=== PATIENT | female | born 1975 | race African-American/Black ===

== ENCOUNTER 2016-11-24 14:42 | Emergency (ER) | payer SELFPAY ==
--- NOTE | 2016-11-24 15:00 | ER Document Report ---
ED Medical Screen (RME) - General Stated Complaint: PSYCH EVAL Time seen by provider: 14:58 Mode of Arrival: Ambulatory Information source: Patient Notes: 41-year-old female presents to ED for feeling depressed for a while now. She denies any thoughts of harming herself or anyone else at this time. States she does not have a mental health worker to help her at this time. She states she has some traumatic events in her life at this time. she is very tearful in the RME. She denies smoking drinking or any drugs. I have greeted and performed a rapid initial assessment of this patient. A comprehensive ED assessment and evaluation of the patient, analysis of test results and completion of medical decision making process will be conducted by an additional ED providers. TRAVEL OUTSIDE OF THE [place] IN LAST 30 DAYS: No - Related Data Allergies/Adverse Reactions: oxycodone HCl [From Percocet] Allergy (Verified 05/04/14 09:52) Past Medical History - Past Medical History Cardiac Medical History: Reports: Hx Hypercholesterolemia, Hx Hypertension Neurological Medical History: Denies: Hx Seizures Musculoskeltal Medical History: Reports Hx Arthritis, Reports Hx Musculoskeletal Trauma Psychiatric Medical History: Reports: Hx Depression Past Surgical History: Reports: Hx Section - x 2 - Immunizations Immunizations up to date: Yes Hx Diphtheria, Pertussis, Tetanus Vaccination: Yes Physical Exam - Vital signs Vitals: Temp Pulse Resp BP Pulse Ox 98.3 F 85 16 161/98 H 97 11/24/16 14:54 11/24/16 14:54 11/24/16 14:54 11/24/16 14:54 11/24/16 14:54 Course - Vital Signs Vital signs: Temp Pulse Resp BP Pulse Ox 98.3 F 85 16 161/98 H 97 11/24/16 14:54 11/24/16 14:54 11/24/16 14:54 11/24/16 14:54 11/24/16 14:54
[2016-11-24 15:42] LABS: ABSOLUTE EOSINOPHILS # (AUTO) 0.1 10^3/uL (0.0-0.6); ABSOLUTE LYMPHOCYTES (AUTO) 3.8 10^3/uL (0.5-4.7); ABSOLUTE MONOCYTES (AUTO) 0.8 10^3/uL (0.1-1.4); ABSOLUTE NEUT (AUTO) 2.7 10^3/uL (1.7-8.2); BASOPHILS % (AUTO) 0.7 % (0-2); EOSINOPHILS % (AUTO) 1.7 % (0-6); HEMATOCRIT 37.9 % (36.0-47.0); HEMOGLOBIN 12.5 g/dL (12.0-15.5); HGB HCT DIFFERENCE -0.4; LYMPHOCYTES % (AUTO) 50.8 % (13-45); MEAN CORPUSCULAR HEMOGLOBIN 27.8 pg (27.0-33.4); MEAN CORPUSCULAR VOLUME 84 fl (80-97); MONOCYTES % (AUTO) 10.4 % (3-13); RED CELL DISTRIBUTION WIDTH 13.8 % (11.5-14.0); SEGMENTED NEUTROPHILS % (AUTO) 36.4 % (42-78); WHITE BLOOD COUNT 7.5 10^3/uL (4.0-10.5)
[2016-11-24 15:48] LABS: APPEARANCE,URINE SLIGHTLY-CLOUDY; BILIRUBIN,URINE NEGATIVE (NEGATIVE); GLUCOSE, URINE NEGATIVE (NEGATIVE); KETONES,URINE NEGATIVE (NEGATIVE); LEUKOCYTE ESTERASE,URINE NEGATIVE (NEGATIVE); NITRITE,URINE NEGATIVE (NEGATIVE); PROTEIN,URINE NEGATIVE (NEGATIVE); URINE SPECIFIC GRAVITY 1.029
[2016-11-24 15:55] LABS: ALANINE AMINOTRANSFERASE 18 U/L (9-52); ALBUMIN 4.2 g/dL (3.5-5.0); ALKALINE PHOSPHATASE 136 U/L (38-126); ANION GAP 12 (5-19); ASPARTATE AMINO TRANSFERASE 16 U/L (14-36); BILIRUBIN,TOTAL 0.6 mg/dL (0.2-1.3); BLOOD UREA NITROGEN 9 mg/dL (7-20); CALCIUM 9.5 mg/dL (8.4-10.2); CARBON DIOXIDE 30 mmol/L (22-30); CHLORIDE 100 mmol/L (98-107); CREATININE RESULT 0.57 mg/dL (0.52-1.25); GLUCOSE 90 mg/dL (75-110); POTASSIUM 3.4 mmol/L (3.6-5.0)
[2016-11-24 15:56] LABS: ALCOHOL < 10 mg/dL (NONE DETECTED)
[2016-11-24 16:03] LABS: URINE BARBITURATES SCREEN NEGATIVE; URINE METHADONE SCREEN NEGATIVE; URINE OPIATES LOW NEGATIVE; URINE PHENCYCLIDINE SCREEN NEGATIVE
--- NOTE | 2016-11-24 16:21 | ER Document Report ---
ED General - General Chief Complaint: Psych Problem Stated Complaint: PSYCH EVAL Time seen by provider: 16:19 Mode of Arrival: Ambulatory Information source: Patient Notes: 41-year-old female with one-week history of feeling very "depressed". She reports she is tearful and very sad she denies any suicidal or homicidal ideation and denies any audio or visual hallucinations. She says she feels loneliness if she has no and talk to. Been followed by [facility] for high blood pressure, cholesterol. She says she has not felt depressed like this before. Physical Exam: General: Alert, appears well. Tearful HEENT: Normocephalic. Atraumatic. PERRLA. Extraocular movements intact. Oropharynx clear. Neck: Supple. Non-tender. Respiratory: No respiratory distress. Clear and equal breath sounds bilaterally. Cardiovascular: Regular rate and rhythm. Abdominal: Normal Inspection. Soft, non-tender. No distension. Normal Bowel Sounds. Back: Non-tender. No deformity or step off. Extremities: Moves all four extremities. Upper extremities: Normal inspection. Non-tender. Normal color. Normal ROM. Normal temperature. Lower extremities: Normal inspection. Non-tender. No edema. Normal color. Normal ROM. Normal temperature. Neurological: Speech clear mentation normal moves all extremities well. No audiovisual hallucinations Psychological: Crying and tearful during exam. Skin: Warm. Dry. Normal color.m TRAVEL OUTSIDE OF THE [place] IN LAST 30 DAYS: No - Related Data Allergies/Adverse Reactions: oxycodone HCl [From Percocet] Allergy (Verified 11/24/16 15:00) Past Medical History - General Information source: Patient - Social History Smoking Status: Never Smoker Chew tobacco use (# tins/day): No Frequency of alcohol use: None Drug Abuse: None Family History: Arthritis, CAD, CVA, DM, Hyperlipidemia, Hypertension Patient has suicidal ideation: No Patient has homicidal ideation: No - Past Medical History Cardiac Medical History: Reports: Hx Hypercholesterolemia, Hx Hypertension Neurological Medical History: Denies: Hx Seizures Renal/ Medical History: Denies: Hx Peritoneal Dialysis Musculoskeltal Medical History: Reports Hx Arthritis, Reports Hx Musculoskeletal Trauma Psychiatric Medical History: Reports: Hx Depression Past Surgical History: Reports: Hx Section - x 2 - Immunizations Immunizations up to date: Yes Hx Diphtheria, Pertussis, Tetanus Vaccination: Yes Review of Systems - Review of Systems Constitutional: denies: Chills, Fever EENT: denies: Ear pain, Throat pain Cardiovascular: denies: Chest pain, Syncope Respiratory: denies: Cough, Short of breath Gastrointestinal: denies: Abdominal pain, Nausea, Vomiting Genitourinary: denies: Burning Female Genitourinary: No symptoms reported Musculoskeletal: denies: Back pain Skin: denies: Rash Hematologic/Lymphatic: denies: Swollen glands Neurological/Psychological: denies: Weakness, Numbness Physical Exam - Vital signs Vitals: Temp Pulse Resp BP Pulse Ox 98.3 F 85 16 161/98 H 97 11/24/16 14:54 11/24/16 14:54 11/24/16 14:54 11/24/16 14:54 11/24/16 14:54 Course - Re-evaluation Re-evalutation: 11/24/16 16:53 Patient is medically clear. Patient has been seen by mental health provider. They assessed her and I concur that the patient is not a threat to self or others and is safe for discharge with outpatient follow-up. She is instructed to follow-up at [facility] [place] tomorrow. - Vital Signs Vital signs: Temp Pulse Resp BP Pulse Ox 98.3 F 85 16 161/98 H 97 11/24/16 14:54 11/24/16 14:54 11/24/16 14:54 11/24/16 14:54 11/24/16 14:54 - Laboratory Result Diagrams: 11/24/16 15:17 11/24/16 15:17 Laboratory results interpreted by me: 11/24/16 11/24/16 11/24/16 15:17 15:17 15:37 Seg Neutrophils % 36.4 L Lymphocytes % 50.8 H Potassium 3.4 L Alkaline Phosphatase 136 H Urine Urobilinogen 2.0 H Urine Ascorbic Acid 40 H Salicylates < 1.0 L Acetaminophen < 10 L - EKG Interpretation by Me Additional EKG results interpreted by me: 11/24/16 16:52 EKG reviewed by myself shows sinus rhythm at 75 no acute changes Discharge - Discharge Clinical Impression: Anxiety Depression Qualifiers: Depression Type: unspecified Qualified Code(s): F32.9 - Major depressive disorder, single episode, unspecified Condition: Stable Disposition: HOME, SELF-CARE Additional Instructions: Depression Your evaluation reveals that you have mental depression. While symptoms may be vague, they often include disturbance of sleep, fatigue, loss of appetite , and general loss of interest in life. While depression may be a side effect of drugs, or a reaction to a major change in your life, many cases have no known cause. If depression is acute, and related to a major loss in your life, you can expect it to clear completely with time. If you have been depressed a long time , are prone to repeated bouts of depression or low mood, or have been thinking of suicide, get help. Depression can be treated with anti-depressant medication and counselling. Long-term depression will often take a few weeks to clear, even with appropriate medication. Follow-up care is important. Contact your physician, the hospital emergency center, crisis line, or your counsellor if you are losing control or having self-destructive thoughts. Anxiety The physician feels that some of your health problems are being caused by anxiety. Anxiety affects your health in many ways. Anxiety alone can cause palpitations, sweats, chest pains, abdominal pains, shortness of breath, and headaches. It contributes to ulcer disease, high blood pressure, irritable bowel syndrome, and has been shown to cause flare-ups of many other diseases. Anxiety is not a simple disorder to treat. If the anxiety is due to recent life stresses, you may simply need time to "work through" the changes. If the anxiety is due to an underlying unhappiness with yourself or due to psychiatric disturbance, professional help will be needed. Your physician can refer you for further help if needed. Anti-anxiety medication is occasionally given if the stress is acute or if you are having trouble sleeping. Chronic or frequent use of these medications is not a good idea because the body becomes reliant on it, preventing you from dealing with life's normal stresses. Referrals: [facility] [place] [Provider Group] - Follow up tomorrow
--- NOTE | 2016-11-24 17:37 | PSYCHOLOGICAL NOTE ---
Psych Note - Psych Note Psych Note: Patient is a 41 year old female who presents via her family member seeking assistance for symptoms related to increase depression and feeling empty. Patient states she thinks she may have been depressed for man years, specifically preceeding her mother's 6 years ago. She states she holds on to grudges and just always feels angry. Patient states this past week her symptoms have increased to to include poor sleep, frequent crying spells, and just generally not wanting to engage with others. Patient states she has never been to see a counselor in the past, but was once prescribed Prozac by her PCM. Patient states she did not find it effective, and when her Medicaid switched to family planning, it did not cover that prescription. Patient identifies her current stressors as her daughter recently moving out, and both her daughter and her "talking to me any jon[address] way." Patient states she feels her is verbally abusive, but does deny physical aggression. She denied resources for [facility] at this time. Patient denies suicidal ideations, intent, plan, or means. Patient denies wanting to harm anyone else. Patient is A&O. Mood is sad and anxious with occasionally tearful affect. Patient denies SI/HI; intent, plan, or means. Patient denies A/V H; delusions not noted. Thought processes were oriented and goal oriented. Conversational speech was WNL for rate, tone, and prosody. Intellectual abilities were estimated within average range. Attention and focus were fair. Insight, judgment , and impulse control were poor. Unspecified Depressive Disorder Patient's presenting symptoms are similar to that of a depressive disorder and cause clinically significant distress in all domains of her life At this time, and in this setting there is not enough information to make a more specific diagnosis. Patient is psychiatrically cleared for discharge. Patient is recommended to follow up with [facility] as a walk in new patient tomorrow morning and is agreeable to do so. Patient denies SI/HI, and has adequate supports with her sister-in- law who accompanied her here today and has agreed to check in with her frequently. Patient states she came to the ER for help, and identifies the type of help she would like as medication for her nerves. Patient does endorse depressive symptoms, which at this time are recommended to be addressed via outpatient treatment. Patient was provided resources to do so. I consulted with Dr. Urbano in regards to the care and management of this patient. ED MD is in agreement with disposition and recommendations.
[2016-11-24 17:39] VITALS: BP 133/80
--- NOTE | 2016-11-24 21:46 | EKG REPORT ---
SEVERITY:- NORMAL ECG - SINUS RHYTHM : Confirmed by: Vincent Murillo 24-Nov-2016 21:46:07
== END 2016-11-24 17:26 | disposition home or self-care (01) ==
LOC: ER 14:42
DX: F41.9 Anxiety disorder, unspecified (principal); F32.9 Major depressive disorder, single episode, unspecified; E78.00 Pure hypercholesterolemia, unspecified; I10 Essential (primary) hypertension; Z88.6 Allergy status to analgesic agent
CPT/HCPCS: 36415; 80053; 80307; 81001; 84703; 85025; 93005; 93010; 99285

== ENCOUNTER 2017-03-20 14:25 | Emergency (ER) | payer SELFPAY ==
--- NOTE | 2017-03-20 14:49 | ER Document Report ---
ED Medical Screen (RME) - General Chief Complaint: Abdominal Pain Stated Complaint: ABDOMINAL/LEFT LEG AND BACK PAIN Time Seen by Provider: 03/20/17 14:42 Notes: The patient is a 41-year-old female, past medical history hypertension, presents with 2 days of left lower quadrant abdominal pain and back pain, which is causing her bilateral leg pain. She is also having vaginal discharge when she urinates that is thin and yellow on the toilet paper. PE: LLQ tenderness. Normal bowel sounds. No acute distress. I have greeted and performed a rapid initial assessment of this patient. A comprehensive ED assessment and evaluation of the patient, analysis of test results and completion of the medical decision making process will be conducted by additional ED providers. TRAVEL OUTSIDE OF THE [place] IN LAST 30 DAYS: No - Related Data Allergies/Adverse Reactions: oxycodone HCl [From Percocet] Allergy (Verified 03/20/17 14:29) Past Medical History - Social History Chew tobacco use (# tins/day): No Frequency of alcohol use: None Drug Abuse: None - Past Medical History Cardiac Medical History: Reports: Hx Hypercholesterolemia, Hx Hypertension Neurological Medical History: Denies: Hx Seizures Renal/ Medical History: Denies: Hx Peritoneal Dialysis Musculoskeltal Medical History: Reports Hx Arthritis, Reports Hx Musculoskeletal Trauma Psychiatric Medical History: Reports: Hx Depression Past Surgical History: Reports: Hx Section - x 2 - Immunizations Immunizations up to date: Yes Hx Diphtheria, Pertussis, Tetanus Vaccination: Yes Physical Exam - Vital signs Vitals: Temp Pulse Resp BP Pulse Ox 99.0 F 95 20 149/90 H 97 03/20/17 14:03/20/17 14:03/20/17 14:29 03/20/17 14:29 03/20/17 14:29 Course - Vital Signs Vital signs: Temp Pulse Resp BP Pulse Ox 99.0 F 95 20 149/90 H 97 03/20/17 14:29 03/20/17 14:29 03/20/17 14:29 03/20/17 14:29 03/20/17 14:29
[2017-03-20 15:33] LABS: ABSOLUTE BASOPHILS # (AUTO) 0.1 10^3/uL (0.0-0.2); ABSOLUTE EOSINOPHILS # (AUTO) 0.1 10^3/uL (0.0-0.6); ABSOLUTE LYMPHOCYTES (AUTO) 3.3 10^3/uL (0.5-4.7); ABSOLUTE MONOCYTES (AUTO) 1.2 10^3/uL (0.1-1.4); ABSOLUTE NEUT (AUTO) 6.6 10^3/uL (1.7-8.2); BASOPHILS % (AUTO) 0.9 % (0-2); EOSINOPHILS % (AUTO) 0.9 % (0-6); HEMATOCRIT 37.4 % (36.0-47.0); HEMOGLOBIN 12.1 g/dL (12.0-15.5); HGB HCT DIFFERENCE -1.1; LYMPHOCYTES % (AUTO) 29.1 % (13-45); MEAN CORPUSCULAR HEMOGLOBIN 27.6 pg (27.0-33.4); MEAN CORPUSCULAR HGB CONC 32.4 g/dL (32.0-36.0); MEAN CORPUSCULAR VOLUME 85 fl (80-97); MONOCYTES % (AUTO) 10.3 % (3-13); RED BLOOD COUNT 4.39 10^6/uL (3.72-5.28); SEGMENTED NEUTROPHILS % (AUTO) 58.8 % (42-78); WHITE BLOOD COUNT 11.2 10^3/uL (4.0-10.5)
[2017-03-20 15:44] LABS: ALANINE AMINOTRANSFERASE 15 U/L (9-52); ALBUMIN 4.1 g/dL (3.5-5.0); ALKALINE PHOSPHATASE 135 U/L (38-126); ANION GAP 12 (5-19); ASPARTATE AMINO TRANSFERASE 15 U/L (14-36); BILIRUBIN,DIRECT 0.3 mg/dL (0.0-0.4); BILIRUBIN,TOTAL 0.6 mg/dL (0.2-1.3); BLOOD UREA NITROGEN 8 mg/dL (7-20); CALCIUM 9.3 mg/dL (8.4-10.2); CARBON DIOXIDE 31 mmol/L (22-30); CHLORIDE 102 mmol/L (98-107); CREATININE RESULT 0.68 mg/dL (0.52-1.25); GLUCOSE 98 mg/dL (75-110); LIPASE 74.1 U/L (23-300); POTASSIUM 3.7 mmol/L (3.6-5.0); SODIUM 144.9 mmol/L (137-145); TOTAL PROTEIN 8.5 g/dL (6.3-8.2)
[2017-03-20 15:52] LABS: APPEARANCE,URINE CLEAR; BILIRUBIN,URINE NEGATIVE (NEGATIVE); GLUCOSE, URINE NEGATIVE (NEGATIVE); KETONES,URINE NEGATIVE (NEGATIVE); LEUKOCYTE ESTERASE,URINE MODERATE (NEGATIVE); NITRITE,URINE NEGATIVE (NEGATIVE); PROTEIN,URINE NEGATIVE (NEGATIVE); URINE SPECIFIC GRAVITY 1.008; UROBILINOGEN,URINE NEGATIVE mg/dL (<2.0)
--- NOTE | 2017-03-20 15:52 | ER Document Report ---
ED GI/ - General Chief Complaint: Abdominal Pain Stated Complaint: ABDOMINAL/LEFT LEG AND BACK PAIN Time Seen by Provider: 03/20/17 14:42 Notes: Patient is here because she has been experiencing pain in the left lower quadrant for 2 days, began Tuesday morning after she had awakened and was up. She says the pain also goes around into the left back/flank region. She has noticed some tingling when she is urinating and that her urine has a more yellow color and an odor to it. Has not had any vomiting or diarrhea. Has not had any fever. LMP March 03. Has had a tubal ligation. Prior . Only medical condition is hypertension. TRAVEL OUTSIDE OF THE [place] IN LAST 30 DAYS: No - Related Data Allergies/Adverse Reactions: oxycodone HCl [From Percocet] Allergy (Verified 03/20/17 14:29) Past Medical History - Social History Smoking Status: Never Smoker Chew tobacco use (# tins/day): No Frequency of alcohol use: None Drug Abuse: None Family History: Arthritis, CAD, CVA, DM, Hyperlipidemia, Hypertension Patient has suicidal ideation: No Patient has homicidal ideation: No - Past Medical History Cardiac Medical History: Reports: Hx Hypercholesterolemia, Hx Hypertension Musculoskeltal Medical History: Reports Hx Arthritis, Reports Hx Musculoskeletal Trauma Psychiatric Medical History: Reports: Hx Depression Past Surgical History: Reports: Hx Section - x 2, Hx Tubal Ligation - Immunizations Immunizations up to date: Yes Hx Diphtheria, Pertussis, Tetanus Vaccination: Yes Review of Systems - Review of Systems Notes: REVIEW OF SYSTEMS: CONSTITUTIONAL : Denies fever. EENT: Denies eye, ear, nose or mouth or throat pain or other symptoms. CARDIOVASCULAR: Denies chest pain. RESPIRATORY: Denies cough, chest congestion, or shortness of breath. GASTROINTESTINAL: See HPI. GENITOURINARY: See HPI. MUSCULOSKELETAL: Denies neck pain. Denies joint pain or swelling. Has chronic back pain secondary to arthritis. SKIN: Denies rash or skin lesions. NEUROLOGICAL: Denies LOC or altered mental status. Denies headache. Denies sensory loss or motor deficits. ALL OTHER SYSTEMS REVIEWED AND NEGATIVE. Physical Exam - Vital signs Vitals: Temp Pulse Resp BP Pulse Ox 99.0 F 95 20 149/90 H 97 03/20/17 14:29 03/20/17 14:29 03/20/17 14:29 03/20/17 14:29 03/20/17 14:29 Interpretation: Normal - Notes Notes: PHYSICAL EXAMINATION: GENERAL: Well-appearing, in no acute distress. Vital signs are all normal. Ambulatory without difficulty. HEAD: Atraumatic, normocephalic. NECK: Normal range of motion, supple. LUNGS: Breath sounds clear and equal bilaterally. HEART: Regular rate and rhythm without murmurs. ABDOMEN: Patient has tenderness in the left lower quadrant plus or minus slight guarding. No mass felt. No bruit heard. Some percussion tenderness in the left flank region. BACK: No tenderness throughout entire back. EXTREMITIES: Normal range of motion without pain. NEUROLOGICAL: Normal speech, normal gait. Normal sensory, motor, and reflex exams. Awake, alert, and oriented x3. SKIN: Warm, dry, no rashes. Course - Vital Signs Vital signs: Temp Pulse Resp BP Pulse Ox 98.1 F 81 16 132/73 H 98 03/20/17 18:38 03/20/17 18:38 03/20/17 18:38 03/20/17 18:38 03/20/17 18:38 - Laboratory Result Diagrams: 03/20/17 15:15 03/20/17 15:15 Laboratory results interpreted by me: 03/20/17 03/20/17 03/20/17 15:05 15:15 15:15 WBC 11.2 H Carbon Dioxide 31 H Alkaline Phosphatase 135 H Total Protein 8.5 H Urine Blood SMALL H Ur Leukocyte Esterase MODERATE H Discharge - Discharge Clinical Impression: Left sided abdominal pain Urinary tract infection Qualifiers: Urinary tract infection type: site unspecified Hematuria presence: without hematuria Qualified Code(s): N39.0 - Urinary tract infection, site not specified Condition: Stable Disposition: HOME, SELF-CARE Additional Instructions: URINARY TRACT INFECTION: Your evaluation indicates that you have a urinary tract infection. This is due to germs growing in the bladder. This is a common problem. This infection usually responds quickly to antibiotics. Your antibiotic should be taken exactly as prescribed. Drink plenty of fluids -- three to four quarts a day. Occasionally, a bladder anesthetic will be prescribed to help stop the feeling of urgency until the antibiotic has a chance to clear the infection. This may cause your urine to be dark orange. Certain urine infections require a culture. If the doctor obtained a culture, the results will be back in two days. You should call to see if a change in treatment is needed. A repeat urinalysis after you finish treatment is often recommended. The physician will let you know if further testing is required. Call the doctor if you develop fever, chills, flank pain, inability to urinate, or blood in the urine. ANTIBIOTIC THERAPY: You have been given an antibiotic prescription. It's important that you take all the medication, unless instructed otherwise by your physician. Failure to complete the entire course can result in relapse of your condition. Common side effects of antibiotics include nausea, intestinal cramping, or diarrhea. Women may develop vaginal yeast infections, and babies can get yeast (thrush) in the mouth following the use of antibiotics. Contact your physician if you develop significant side effects from this medication. Allergy to this antibiotic can result in hives, wheezing, faintness, or itching. If symptoms of allergy occur, stop the medication and call the doctor. Rocephin You have been given an injection of an antibiotic called Rocephin ( ceftriaxone). Sometimes the injection must be combined with antibiotic pills. For some infections, such as an uncomplicated ear infection, Rocephin provides all the antibiotic that's needed. The antibiotic will be in your body for about two days. For serious infections, we usually repeat doses of Rocephin daily. Side effects are very unusual following a shot. Women may develop vaginal yeast infections, and babies can get yeast (thrush) in the mouth following the use of antibiotics. Contact your physician if you have symptoms with this medication. Allergy to this antibiotic can result in hives, wheezing, faintness, or itching. If symptoms of allergy occur, call the doctor at once. NITROFURANTOIN (MACRODANTIN, MACROBID): You have received a prescription for nitrofurantoin (Macrodantin). This antibiotic is used for urinary tract infections. Women who are or nursing should notify the physician before taking this medicine. If you have ever had a problem caused by this medication in the past, be sure the physician is aware of it. Common side effects of this medicine include nausea, vomiting, or decreased appetite. Notify your physician if these side effects become severe. Immediately stop this medicine and call the physician if you develop cough , shortness of breath, chest pain, weakness, jaundice (yellow color of the skin and whites of the eyes), or a skin rash. Oral Narcotic Medication You have been given a prescription for pain control. This medication is a narcotic. It's best taken with food, as nausea can result if taken on an empty stomach. Don't operate machinery or drive within six hours of taking this medication. Do not combine this medicine with alcohol, or with any medication which can cause sedation (such as cold tablets or sleeping pills) unless you get permission from the physician. Narcotics tend to cause constipation. If possible, drink plenty of fluids and eat a diet high in fiber and fruits. FOLLOW-UP CARE: If you have been referred to a physician for follow-up care, call the physician s office for an appointment as you were instructed or within the next two days. If you experience worsening or a significant change in your symptoms, notify the physician immediately or return to the Emergency Department at any time for re-evaluation. Prescriptions: Hydrocodone/Acetaminophen [Ada 5-325 mg Tablet] 1 tab PO Q4HP PRN #10 tablet PRN Reason: Nitrofurantoin/Nitrofuran Mac [Macrobid 100 mg Capsule] 1 tab PO BID #14 capsule
[2017-03-20] MEDS ORDERED: ACETAMINOPHEN 325 MG TABLET PO ONE (15:53)
[2017-03-20] MEDS ORDERED: PROMETHAZINE HCL 25 MG TABLET PO ONE (15:54)
[2017-03-20] MEDS ORDERED: CEFTRIAXONE INJ 1000 MG VIAL IM ONE (17:26)
[2017-03-20] MEDS ORDERED: LIDOCAINE 1% INJ-PF (10 MG/ML) 30 ML SDV INJ ONE (17:26)
[2017-03-20 17:57] LABS: CHLAM PCR NOT DETECTED (NOT DETECT)
--- NOTE | 2017-03-20 18:26 | RADIOLOGY REPORT (SQ) ---
EXAM DESCRIPTION: CT ABD/PELVIS NO ORAL OR IV COMPLETED DATE/TIME: 03/20/2017 6:05 pm REASON FOR STUDY: Left lower quadrant pain COMPARISON: None. TECHNIQUE: CT scan of the abdomen and pelvis performed without intravenous or oral contrast. Images reviewed with lung, soft tissue, and bone windows. Reconstructed coronal and sagittal MPR images revi ewed. All images stored on PACS. All CT scanners at this facility use dose modulation, iterative reconstruction, and/or weight based d osing when appropriate to reduce radiation dose to as low as reasonably achievable (ALARA). [facility]: Dose Right [facility]: CareDose [facility]: Dose Right [facility]: Teradose 4D [facility]: Smart HammerKit RADIATION DOSE: Up-to-date CT equipment and radiation dose reduction techniques were employed. CTDIv ol: 21.0 mGy. DLP: 1116 mGy-cm.mGy. LIMITATIONS: None. FINDINGS: LOWER CHEST: No significant findings. No nodules or infiltrates. NON-CONTRASTED LIVER, SPLEEN, ADRENALS: Evaluation limited by lack of IV contrast. No identified sign ificant masses. PANCREAS: No masses. No peripancreatic inflammatory changes. GALLBLADDER: No identified stones by CT criteria. No inflammatory changes to suggest cholecystitis. RIGHT KIDNEY AND URETER: No solid masses. No significant calcification. No hydronephrosis or hydroure ter. LEFT KIDNEY AND URETER: No solid masses. No significant calcification. No hydronephrosis or hydrouret er. AORTA AND RETROPERITONEUM: No aneurysm. No retroperitoneal masses or adenopathy. BOWEL AND PERITONEAL CAVITY: No obvious masses or inflammatory changes. No free fluid. APPENDIX: Normal. PELVIS, BLADDER, AND ABDOMINAL WALL:No abnormal masses. No free fluid. Bladder normal. BONES: No significant findings. OTHER: No other significant finding. IMPRESSION: NO SIGNIFICANT OR ACUTE PROCESS IN THE ABDOMEN OR PELVIS. TECHNICAL DOCUMENTATION: JOB ID: [id number] Quality ID # [id number]: Final reports with documentation of one or more dose reduction techniques (e.g., Au tomated exposure control, adjustment of the mA and/or kV according to patient size, use of iterative reconstruction technique) 2010 [employer]- All Rights Reserved
[2017-03-20 18:40] VITALS: BP 132/73
== END 2017-03-20 19:15 | disposition home or self-care (01) ==
LOC: ER 14:25
DX: N39.0 Urinary tract infection, site not specified (principal); R10.32 Left lower quadrant pain; I10 Essential (primary) hypertension; Z98.51 Tubal ligation status; Z88.5 Allergy status to narcotic agent
CPT/HCPCS: 99284; 96372; 36415; 87086; 83690; 85025; 81025; 87088; 80053; 81001; 87186; 87491; 87591; 74176; J3490; J0696

== ENCOUNTER → 2017-06-27 | Outpatient (CLI) | payer OTHER ==
[2017-06-27 11:56] LABS: ALANINE AMINOTRANSFERASE 22 U/L (9-52); ALBUMIN 4.4 g/dL (3.5-5.0); ALKALINE PHOSPHATASE 172 U/L (38-126); ANION GAP 14 (5-19); ASPARTATE AMINO TRANSFERASE 20 U/L (14-36); BILIRUBIN,DIRECT 0.4 mg/dL (0.0-0.4); BILIRUBIN,TOTAL 0.7 mg/dL (0.2-1.3); BLOOD UREA NITROGEN 10 mg/dL (7-20); CALCIUM 9.9 mg/dL (8.4-10.2); CARBON DIOXIDE 28 mmol/L (22-30); CHLORIDE 103 mmol/L (98-107); CREATININE RESULT 0.63 mg/dL (0.52-1.25); Direct HDL 53 mg/dL (>40); GLUCOSE 91 mg/dL (75-110); POTASSIUM 3.8 mmol/L (3.6-5.0); SODIUM 144.8 mmol/L (137-145); TOTAL PROTEIN 8.6 g/dL (6.3-8.2); TRIGLYCERIDES 72 mg/dL (<150)
[2017-06-27 12:06] LABS: DIRECT LDL 149 mg/dL (<100)
== END ==
LOC: CCC 09:59
DX: I10 Essential (primary) hypertension (principal)
CPT/HCPCS: 36415; 80053; 80061; 83036

== ENCOUNTER → 2017-06-29 | Outpatient (CLI) | payer OTHER ==
--- NOTE | 2017-06-29 13:03 | WOMENS IMAGING REPORT ---
EXAM DESCRIPTION: BILAT SCREENING MAMMO W/CAD COMPLETED DATE/TIME: 06/29/2017 9:16 am REASON FOR STUDY: SCREENING MAMMO Z12.31 ENCNTR SCREEN MAMMOGRAM FOR MALIGNANT NEOPLASM OF FRANK COMPARISON: 2015 TECHNIQUE: Standard craniocaudal and mediolateral oblique views of each breast recorded using digita l acquisition. LIMITATIONS: None. FINDINGS: Findings present which are benign by mammographic criteria. No suspicious masses, calcifi cations or architectural distortion. Pertinent benign findings: Scattered punctate calcifications bilaterally Read with the assistance of CAD. .[facility] - R2 Cenova Version 1.3 .[facility] - R2 Cenova Version 1.3 .[facility] - R2 Cenova Version 2.4 .[facility] [place] - R2 Cenova Version 2.4 .[facility] - R2 Plaster Molder Version 9.2 Benign mammographic findings may include one or more of the following: Smooth masses, popcorn/rim/co arse calcifications, asymmetries, post-procedure changes, and lesions with long-standing stability. IMPRESSION: BENIGN MAMMOGRAPHIC FINDINGS. BIRADS 2 BREAST DENSITY: b. There are scattered areas of fibroglandular density. BIRAD: 2 BENIGN FINDING(S) RECOMMENDATION: ROUTINE SCREENING Please consider bilateral screening tomosynthesis in June 2018 COMMENT: The patient has been notified of the results by letter per MQSA requirements. Additional no tification policies are in place for contacting patient with suspicious or incomplete findings. Quality ID #[id number]: The [employer] recommends an annual screening mammogram for women aged 40 years or over. This facility utilizes a reminder system to ensure that all patients receive reminder letters, and/or direct phone calls for appointments. This includes reminders for routine scr eening mammograms, diagnostic mammograms, or other Breast Imaging Interventions when appropriate. Th is patient will be placed in the appropriate reminder system. The [employer] (ACR) has developed recommendations for screening MRI of the breast s in certain patient populations, to be used in conjunction with mammography. Breast MRI surveillanc e may be appropriate for women with more than 20% lifetime risk of developing breast cancer as deter mined by genetic testing, significant family history of the disease, or history of mantle radiation f or Hodgkins Disease. ACR Practice Guidelines 2008. TECHNICAL DOCUMENTATION: FINDING NUMBER: (1) ASSESSMENT: (1) JOB ID: [id number] [employer]- All Rights Reserved
== END ==
LOC: WI 08:49
DX: Z12.31 Encounter for screening mammogram for malignant neoplasm of breast (principal)
CPT/HCPCS: 77067; G0202

== ENCOUNTER 2018-02-10 06:17 | Emergency (ER) | payer SELFPAY ==
[2018-02-10] MEDS ORDERED: PROMETHAZINE HCL INJ 25 MG/1 ML VIAL IM ONE (07:22)
[2018-02-10] MEDS ORDERED: NORMAL SALINE 1000 ML 1,000 ML IV PRN (07:22)
[2018-02-10] MEDS ORDERED: MORPHINE SULFATE 10 MG/ML INJ IV ONE (07:22)
[2018-02-10] MEDS ORDERED: MAG HYDROX/AL HYDROX/SIMETH SUSP 30 ML UDCUP PO ONE (07:22)
[2018-02-10] MEDS ORDERED: LIDOCAINE 2% VISCOUS SOLN 20 ML UDCUP PO ONE (07:22)
--- NOTE | 2018-02-10 07:29 | ER Document Report ---
ED General - General Chief Complaint: Abdominal Pain Stated Complaint: ABDOMINAL PAIN Time Seen by Provider: 02/10/18 07:09 TRAVEL OUTSIDE OF THE [place] IN LAST 30 DAYS: No - HPI Notes: Patient is a 42-year-old female with a history of hypertension who presents to the ED complaining of nausea, vomiting, diarrhea with epigastric abdominal cramping and pain intermittently over the last 2 weeks. Patient states that any p.o. intake does worsen her symptoms. She has tried some zvax-bvy-gqtelij meds with minimal relief. The pain does not radiate. She has not had any hematemesis, melena, or hematochezia. Patient states that her diarrhea is watery. She denies any recent antibiotic use. Denies any recent travel. She has not had any significant surgical history to her abdomen aside from a C- section. Denies any headache, fever, neck pain, URI, sore throat, chest pain, palpitations, syncope, cough, shortness of breath, wheeze, dyspnea, urinary retention, dysuria, hematuria, back pain, loss of control of bowel or bladder, numbness/tingling, saddle anesthesia, muscle paralysis/weakness, or rash. - Related Data Allergies/Adverse Reactions: oxycodone HCl [From Percocet] Allergy (Verified 03/20/17 14:29) Past Medical History - Social History Smoking Status: Never Smoker Chew tobacco use (# tins/day): No Frequency of alcohol use: None Drug Abuse: None Family History: Arthritis, CAD, CVA, DM, Hyperlipidemia, Hypertension Patient has suicidal ideation: No Patient has homicidal ideation: No - Past Medical History Cardiac Medical History: Reports: Hx Hypercholesterolemia, Hx Hypertension Neurological Medical History: Denies: Hx Seizures Renal/ Medical History: Denies: Hx Peritoneal Dialysis Musculoskeltal Medical History: Reports Hx Arthritis, Reports Hx Musculoskeletal Trauma Psychiatric Medical History: Reports: Hx Depression Past Surgical History: Reports: Hx Section - x 2, Hx Tubal Ligation - Immunizations Immunizations up to date: Yes Hx Diphtheria, Pertussis, Tetanus Vaccination: Yes Review of Systems - Review of Systems -: Yes All other systems reviewed and negative Physical Exam - Vital signs Vitals: Temp Pulse Resp BP Pulse Ox 98.2 F 87 18 129/89 H 96 02/10/18 06:22 02/10/18 06:22 02/10/18 06:22 02/10/18 06:22 02/10/18 06:22 - Notes Notes: PHYSICAL EXAMINATION: GENERAL: Well-appearing, well-nourished and in no acute distress. HEAD: Atraumatic, normocephalic. EYES: Pupils equal round and reactive to light, extraocular movements intact, sclera anicteric, conjunctiva are normal. ENT: Nares patent and without discharge. oropharynx clear without exudates. No tonsilar hypertrophy or erythema. Moist mucous membranes. NECK: Normal range of motion, supple without lymphadenopathy LUNGS: Breath sounds clear to auscultation bilaterally and equal. No wheezes rales or rhonchi. HEART: Regular rate and rhythm without murmurs, rubs, gallops. ABDOMEN: Soft, nondistended abdomen. No guarding, no rebound. No masses appreciated. Normal bowel sounds present. No CVA tenderness bilaterally. + mild tenderness to the epigastrum. ?Connors sign. No tenderness at [place]. Musculoskeletal: FROM to passive/active. Strength 5+/5. Extremities: No cyanosis, clubbing, or edema b/l. Peripheral pulses 2+. Capillary refill less than 3 seconds. NEUROLOGICAL: Normal speech, normal gait. Normal sensory, motor exams PSYCH: Normal mood, normal affect. SKIN: Warm, Dry, normal turgor, no rashes or lesions noted. Course - Re-evaluation Re-evalutation: 02/10/18 10:00 Patient is an afebrile, well-hydrated, 42-year-old female who presents to the ED with epigastric abdominal pain, suspect gastroenteritis at this time/viral. Vitals are acceptable. PE is otherwise unremarkable. Patient is nontoxic- appearing. She has no significant tachycardia, tachypnea, or hypoxia. CBC, CMP , lipase, HCG, UA, chest x-ray, right upper quadrant ultrasound were all unremarkable for any acute pathology. Patient was given fluids and IV medication as well as GI cocktail. Pt states that her symptoms have greatly improved thereafter. Patient was unable to provide us with a stool sample for testing. I will give her a slip for outpatient testing. No other labs or imaging warranted at this time based on H&P. Low suspicion/risk for acute appendicitis, bowel obstruction, acute cholecystitis, acute cholangitis, perforated diverticulitis, incarcerated hernia, pancreatitis, perforated ulcer, peritonitis, sepsis, pelvic inflammatory disease, ectopic , tubo- ovarian abscess, ovarian torsion, or other systemic emergent condition at this time. Patient is aware that her condition can change from initial presentation and she needs to monitor symptoms closely and seek medical attention if any acute changes. Conservative measures otherwise for symptoms. Recheck with your PCM in 2-3 days. Schedule a consult with a ceramics teacher. Return to the ED with any worsening/concerning symptoms otherwise as reviewed in discharge. Patient is in agreement. - Vital Signs Vital signs: Temp Pulse Resp BP Pulse Ox 98.2 F 87 18 129/89 H 96 02/10/18 06:22 02/10/18 06:22 02/10/18 06:22 02/10/18 06:22 02/10/18 06:22 - Laboratory Result Diagrams: 02/10/18 06:40 02/10/18 06:40 Laboratory results interpreted by me: 02/10/18 02/10/18 02/10/18 06:40 06:40 06:40 RDW 14.3 H Monocytes % 13.4 H Sodium 147.7 H Potassium 3.2 L Carbon Dioxide 32 H Direct Bilirubin 0.5 H Alkaline Phosphatase 140 H Total Protein 8.8 H Urine Protein 30 H Urine Ketones TRACE H Urine Urobilinogen 4.0 H Discharge - Discharge Clinical Impression: Gastroenteritis Abdominal pain Qualifiers: Abdominal location: upper abdomen, unspecified Qualified Code(s): R10.10 - Upper abdominal pain, unspecified Condition: Stable Disposition: HOME, SELF-CARE Instructions: Abdominal Pain ([facility]), Antinausea Medication ([facility]), Gastroenteritis (adult) ([facility]), Low-Fat Diet ([facility]), OTC Antidiarrhea Medication ( [facility]) Additional Instructions: Maintain adequate fluid and food intake [place] diet ([employer] Bananas, rice, apples, toast, etc Zofran as needed tylenol if needed Monitor for any worsening symptoms Make sure you are staying hydrated enough to urinate and have normal BM's Recheck with your PCM in 2-3 days Schedule a consult with Gastroenterology for ongoing/worsening symptoms Return to the ED with any worsening symptoms and/or development of fever, headache, chest pain, palpitations, syncope, shortness of breath, trouble breathing, abdominal pain, n/v/d, blood in stool/urine, weakness, or other worsening symptoms that are concerning to you. Prescriptions: Loperamide HCl [Imodium 2 mg Capsule] 2 mg PO PRN PRN #21 cap PRN Reason: Omeprazole 20 mg PO DAILY #30 tablet. Ondansetron [Zofran Odt 4 mg Tablet] 1 - 2 tab PO Q4H PRN #15 tab.rapdis PRN Reason: For Nausea/Vomiting Sucralfate [Carafate] 1 gm PO QID PRN #420 ml PRN Reason: Forms: Elevated Blood Pressure, Follow-Up Laboratory Testing Referrals: THOM TORRE MD [ACTIVE STAFF] - Follow up as needed YUMIKO ARITA MD [ACTIVE STAFF] - Follow up as needed
[2018-02-10 07:30] LABS: ABSOLUTE EOSINOPHILS # (AUTO) 0.1 10^3/uL (0.0-0.6); ABSOLUTE LYMPHOCYTES (AUTO) 2.3 10^3/uL (0.5-4.7); ABSOLUTE MONOCYTES (AUTO) 0.9 10^3/uL (0.1-1.4); ABSOLUTE NEUT (AUTO) 3.2 10^3/uL (1.7-8.2); BASOPHILS % (AUTO) 0.7 % (0-2); EOSINOPHILS % (AUTO) 1.7 % (0-6); HEMATOCRIT 38.6 % (36.0-47.0); HEMOGLOBIN 12.9 g/dL (12.0-15.5); MEAN CORPUSCULAR HEMOGLOBIN 27.1 pg (27.0-33.4); MEAN CORPUSCULAR HGB CONC 33.4 g/dL (32.0-36.0); MEAN CORPUSCULAR VOLUME 81 fl (80-97); MONOCYTES % (AUTO) 13.4 % (3-13); PLATELET COUNT 446 10^3/uL (150-450); RED BLOOD COUNT 4.77 10^6/uL (3.72-5.28); RED CELL DISTRIBUTION WIDTH 14.3 % (11.5-14.0); SEGMENTED NEUTROPHILS % (AUTO) 49.2 % (42-78); TOTAL CELLS COUNTED % (AUTO) 100 %; WHITE BLOOD COUNT 6.4 10^3/uL (4.0-10.5)
[2018-02-10 07:35] LABS: APPEARANCE,URINE SLIGHTLY-CLOUDY; BILIRUBIN,URINE NEGATIVE (NEGATIVE); COLOR,URINE YELLOW; GLUCOSE, URINE NEGATIVE (NEGATIVE); KETONES,URINE TRACE mg/dL (NEGATIVE); LEUKOCYTE ESTERASE,URINE NEGATIVE (NEGATIVE); NITRITE,URINE NEGATIVE (NEGATIVE); PROTEIN,URINE 30 mg/dL (NEGATIVE); URINE SPECIFIC GRAVITY 1.025
[2018-02-10 07:43] LABS: ALANINE AMINOTRANSFERASE 32 U/L (9-52); ALBUMIN 4.4 g/dL (3.5-5.0); ALKALINE PHOSPHATASE 140 U/L (38-126); ANION GAP 16 (5-19); ASPARTATE AMINO TRANSFERASE 36 U/L (14-36); BILIRUBIN,DIRECT 0.5 mg/dL (0.0-0.4); BILIRUBIN,TOTAL 0.7 mg/dL (0.2-1.3); BLOOD UREA NITROGEN 12 mg/dL (7-20); CARBON DIOXIDE 32 mmol/L (22-30); CHLORIDE 100 mmol/L (98-107); GLUCOSE 102 mg/dL (75-110); LIPASE 107.2 U/L (23-300); POTASSIUM 3.2 mmol/L (3.6-5.0); SODIUM 147.7 mmol/L (137-145); TOTAL PROTEIN 8.8 g/dL (6.3-8.2)
--- NOTE | 2018-02-10 08:46 | RADIOLOGY REPORT (SQ) ---
EXAM DESCRIPTION: U/S ABDOMEN LIMITED W/O DOP COMPLETED DATE/TIME: 02/10/2018 8:35 am REASON FOR STUDY: ruq/epigastric abd pain COMPARISON: CT abdomen pelvis 03/20/2017 TECHNIQUE: Dynamic and static grayscale images acquired of the abdomen and recorded on PACS. Additio nal selected color Doppler and spectral images recorded. LIMITATIONS: Large patient, midline bowel gas. Limited study. FINDINGS: PANCREAS: Not visualized LIVER: Very limited view. Normal size. No biliary ductal dilatation. LIVER VASCULATURE: Normal directional flow of the main portal vein and hepatic veins. GALLBLADDER: No gross gallstones. No gross gallbladder wall thickening. ULTRASOUND-DETECTED PENALOZA'S SIGN: Negative. INTRAHEPATIC DUCTS AND COMMON DUCT: CBD and intrahepatic ducts normal caliber. No filling defects. D istal common duct at the gilbert hepatis not well seen INFERIOR VENA CAVA: Not well seen AORTA: Upper abdominal aorta unremarkable. Distal abdominal aorta not well seen RIGHT KIDNEY: Normal size. Normal echogenicity. No solid or suspicious masses. No hydronephrosis. No calcifications. PERITONEAL AND RIGHT PLEURAL SPACE: No ascites or effusions. OTHER: No other significant findings. IMPRESSION: Very limited study due to patient body habitus. No gallstones in the gallbladder. TECHNICAL DOCUMENTATION: JOB ID: [id number] [employer]- All Rights Reserved Reading location - IP/workstation name: [email or web address]
--- NOTE | 2018-02-10 09:01 | RADIOLOGY REPORT (SQ) ---
EXAM DESCRIPTION: CHEST SINGLE VIEW COMPLETED DATE/TIME: 02/10/2018 8:54 am REASON FOR STUDY: epigastric pain COMPARISON: Chest film 05/04/2014 EXAM PARAMETERS: NUMBER OF VIEWS: One view. TECHNIQUE: Single frontal radiographic view of the chest acquired. RADIATION DOSE: NA LIMITATIONS: None. FINDINGS: LUNGS AND PLEURA: No opacities, masses or pneumothorax. No pleural effusion. MEDIASTINUM AND HILAR STRUCTURES: No masses. Contour normal. HEART AND VASCULAR STRUCTURES: Heart normal in size. Normal vasculature. BONES: No acute findings. HARDWARE: None in the chest. OTHER: No other significant finding. IMPRESSION: NO ACUTE RADIOGRAPHIC FINDING IN THE CHEST. TECHNICAL DOCUMENTATION: JOB ID: [id number] [employer] All Rights Reserved Reading location - IP/workstation name: [email or web address]
[2018-02-10 10:16] VITALS: BP 119/69
== END 2018-02-10 10:16 | disposition home or self-care (01) ==
LOC: ER 06:17
DX: K52.9 Noninfective gastroenteritis and colitis, unspecified (principal); R10.13 Epigastric pain; R11.2 Nausea with vomiting, unspecified; R19.7 Diarrhea, unspecified; E78.00 Pure hypercholesterolemia, unspecified; I10 Essential (primary) hypertension; Z88.6 Allergy status to analgesic agent; Z98.51 Tubal ligation status
CPT/HCPCS: 99284; 96372; 96361; 96374; 36415; 83690; 84703; 85025; 80053; 81001; 71045; 76705; J3490; J2270; J2550; J7030

== ENCOUNTER 2019-06-17 05:57 | Emergency (ER) | payer SELFPAY ==
[2019-06-17] MEDS ORDERED: KETOROLAC TROMETHAMINE 60 MG/2 ML SDV IM ONE (09:15)
--- NOTE | 2019-06-17 09:34 | ER Document Report ---
HPI - HPI Time Seen by Provider: 06/17/19 09:11 Pain Level: 5 Notes: Patient is a 43-year-old female with a history of hypertension who presents complaining of an intermittent dry nonproductive cough for the past month as well as bilateral lower back pain with occasional burning/pain that radiates to the left lateral upper leg. Pt states that when she turns to one side she will feel some mild sob but not with ambulation. Patient states that she has had chronic issues with her back. She is able to eat and drink without difficulty. She is urinating normally and having normal bowel movements. No history of diabetes, spinal abscess, IV drug abuse. Denies drug allergies. Denies any headache, fever, neck pain, URI, sore throat, chest pain, palpitations, syncope, shortness of breath, wheeze, dyspnea, abdominal pain, nausea/vomiting/diarrhea, urinary retention, dysuria, hematuria, loss of control of bowel or bladder, numbness/tingling, saddle anesthesia, muscle paralysis/weakness, or rash. - ROS Systems Reviewed and Negative: Yes All other systems reviewed and negative - CONSTITUTIONAL Constitutional: DENIES: Fever, Chills - EENT EENT: DENIES: Sore Throat, Ear Pain, Eye problems - NEURO Neurology: DENIES: Headache, Weakness, Vision blurred, Dizzinesss / Vertigo - CARDIOVASCULAR Cardiovascular: DENIES: Chest pain - RESPIRATORY Respiratory: REPORTS: Coughing. DENIES: Trouble Breathing - GASTROINTESTINAL Gastrointestinal: DENIES: Abdominal Pain, Black / Bloody Stools - URINARY Urinary: DENIES: Dysuria, Urgency, Frequency - REPRODUCTIVE Reproductive: DENIES: : - MUSCULOSKELETAL Musculoskeletal: DENIES: Extremity pain Past Medical History - Social History Smoking Status: Never Smoker Chew tobacco use (# tins/day): No Drug Abuse: None Family History: Arthritis, CAD, CVA, DM, Hyperlipidemia, Hypertension Patient has suicidal ideation: No Patient has homicidal ideation: No - Past Medical History Cardiac Medical History: Reports: Hx Hypercholesterolemia, Hx Hypertension Neurological Medical History: Denies: Hx Seizures Renal/ Medical History: Denies: Hx Peritoneal Dialysis Musculoskeletal Medical History: Reports Hx Arthritis, Reports Hx Musculoskeletal Trauma Psychiatric Medical History: Reports: Hx Depression Past Surgical History: Reports: Hx Section - x 2, Hx Tubal Ligation - Immunizations Immunizations up to date: Yes Hx Diphtheria, Pertussis, Tetanus Vaccination: Yes Vertical Provider Document - CONSTITUTIONAL Agree With Documented VS: Yes Notes: PHYSICAL EXAMINATION: GENERAL: Well-appearing, well-nourished and in no acute distress. ENT: Nares patent and without discharge. oropharynx no erythema without exudates. No tonsilar hypertrophy without erythema or exudate. No palatine shift. Uvula midline. No tongue protrusion. No drooling, hoarseness, or airway compromise. Moist mucous membranes. No sinus tenderness. NECK: Normal range of motion, supple without lymphadenopathy. No rigidity/men ingismus. LUNGS: Breath sounds clear to auscultation bilaterally and equal. No wheezes rales or rhonchi. HEART: Regular rate and rhythm without murmurs, rubs, gallops. ABDOMEN: Soft, nontender, nondistended abdomen. No guarding, no rebound. Normal bowel sounds present. No CVA tenderness bilaterally. No pulsatile mass Musculoskeletal: LE's b/l: FROM to passive/active. Strength 5+/5. No deficits noted. No bony tenderness of extremities. Back: FROM to passive/active. Strength 5+/5. No vertebral point tenderness, stepoffs, or deformities. No other bony tenderness, erythema, swelling, or ecchymosis. SLR negative b/l. + mild/reproducible tenderness to the L- paraspinal mm b/l. Mild spasming. No SI jt tenderness. No foot drop Extremities: No cyanosis, clubbing, or edema b/l. Peripheral pulses 2+. Capillary refill less than 2 seconds. NEUROLOGICAL: Normal speech, normal gait. Normal sensory, motor exams. Reflexes 2+ b/l. PSYCH: Normal mood, normal affect. SKIN: Warm, Dry, normal turgor, no rashes or lesions noted. - INFECTION CONTROL TRAVEL OUTSIDE OF THE [place]. IN LAST 30 DAYS: No Course - Vital Signs Vital signs: Temp Pulse Resp BP Pulse Ox 98.0 F 88 16 140/83 H 98 06/17/19 06:04 06/17/19 06:04 06/17/19 06:04 06/17/19 06:04 06/17/19 06:04
--- NOTE | 2019-06-17 09:43 | RADIOLOGY REPORT (SQ) ---
EXAM DESCRIPTION: CHEST 2 VIEWS COMPLETED DATE/TIME: 06/17/2019 9:29 am REASON FOR STUDY: cough COMPARISON: 05/04/2014 EXAM PARAMETERS: NUMBER OF VIEWS: two views TECHNIQUE: Digital Frontal and Lateral radiographic views of the chest acquired. RADIATION DOSE: NA LIMITATIONS: none FINDINGS: LUNGS AND PLEURA: Diffuse tiny nodular changes throughout the lungs. No effusions. MEDIASTINUM AND HILAR STRUCTURES: No masses or contour abnormalities. HEART AND VASCULAR STRUCTURES: Heart normal size. No evidence for failure. BONES: No acute findings. HARDWARE: None in the chest. OTHER: No other significant finding. IMPRESSION: Findings are most likely related to metastatic disease. Nodular pneumonia in the differ ential including tuberculosis. TECHNICAL DOCUMENTATION: JOB ID: [id number] [employer]- All Rights Reserved Reading location - IP/workstation name: [email or web address]
--- NOTE | 2019-06-17 09:56 | ER Document Report ---
ED Medical Screen (RME) - General Chief Complaint: Low Back Pain Stated Complaint: LOWER BACK PAIN Time Seen by Provider: 06/17/19 09:11 TRAVEL OUTSIDE OF THE [place] IN LAST 30 DAYS: No - HPI Notes: 06/17/19 09:55 Patient is a 43-year-old female with a history of hypertension who presents complaining of an intermittent dry nonproductive cough for the past month as well as bilateral lower back pain with occasional burning/pain that radiates to the left lateral upper leg. Pt states that when she turns to one side she will feel some mild sob but not with ambulation. Patient states that she has had chronic issues with her back. She is able to eat and drink without difficulty. She is urinating normally and having normal bowel movements. No history of diabetes, spinal abscess, IV drug abuse. Denies drug allergies. Denies any headache, fever, neck pain, URI, sore throat, chest pain, palpitations, syncope, shortness of breath, wheeze, dyspnea, abdominal pain, nausea/vomiting/diarrhea, urinary retention, dysuria, hematuria, loss of control of bowel or bladder, numbness/tingling, saddle anesthesia, muscle paralysis/weakness, or rash. I have treated and performed a rapid initial assessment of this patient. A comprehensive ED assessment and evaluation of the patient, analysis of test results and completion of medical decision making process will be conducted by additional ED providers. *Pulmonary nodules on XR. We will order further w/u as reviewed with Dr. Moe. PHYSICAL EXAMINATION: GENERAL: Well-appearing, well-nourished and in no acute distress. ENT: Nares patent and without discharge. oropharynx no erythema without exudates. No tonsilar hypertrophy without erythema or exudate. No palatine shift. Uvula midline. No tongue protrusion. No drooling, hoarseness, or air way compromise. Moist mucous membranes. No sinus tenderness. NECK: Normal range of motion, supple without lymphadenopathy. No rigidity/meningismus. LUNGS: Breath sounds clear to auscultation bilaterally and equal. No wheezes rales or rhonchi. HEART: Regular rate and rhythm without murmurs, rubs, gallops. Back: FROM to passive/active. Strength 5+/5. No vertebral point tenderness, stepoffs, or deformities. No other bony tenderness, erythema, swelling, or ecchymosis. SLR negative b/l. + mild/reproducible tenderness to the L- paraspinal mm b/l. Mild spasming. No SI jt tenderness. No foot drop Extremities: No cyanosis, clubbing, or edema b/l. Peripheral pulses 2+. Capillary refill less than 2 seconds. NEUROLOGICAL: Normal speech, normal gait. Normal sensory, motor exams. Reflexes 2+ b/l. PSYCH: Normal mood, normal affect. SKIN: Warm, Dry, normal turgor, no rashes or lesions noted. - Related Data Allergies/Adverse Reactions: No Known Allergies Allergy (Verified 06/17/19 06:51) Past Medical History - Social History Chew tobacco use (# tins/day): No Drug Abuse: None - Past Medical History Cardiac Medical History: Reports: Hx Hypercholesterolemia, Hx Hypertension Neurological Medical History: Denies: Hx Seizures Renal/ Medical History: Denies: Hx Peritoneal Dialysis Musculoskeltal Medical History: Reports Hx Arthritis, Reports Hx Musculoskeletal Trauma Psychiatric Medical History: Reports: Hx Depression Past Surgical History: Reports: Hx Section - x 2, Hx Tubal Ligation - Immunizations Immunizations up to date: Yes Hx Diphtheria, Pertussis, Tetanus Vaccination: Yes Physical Exam - Vital signs Vitals: Temp Pulse Resp BP Pulse Ox 98.0 F 88 16 140/83 H 98 06/17/19 06:04 06/17/19 06:04 06/17/19 06:04 06/17/19 06:04 06/17/19 06:04 Course - Vital Signs Vital signs: Temp Pulse Resp BP Pulse Ox 98.0 F 88 16 140/83 H 98 06/17/19 06:04 06/17/19 06:04 06/17/19 06:04 06/17/19 06:04 06/17/19 06:04
[2019-06-17 10:34] LABS: ABSOLUTE BASOPHILS # (AUTO) 0.1 10^3/uL (0.0-0.2); ABSOLUTE EOSINOPHILS # (AUTO) 0.2 10^3/uL (0.0-0.6); ABSOLUTE LYMPHOCYTES (AUTO) 1.7 10^3/uL (0.5-4.7); BASOPHILS % (AUTO) 1.2 % (0-2); EOSINOPHILS % (AUTO) 3.3 % (0-6); HEMATOCRIT 37.7 % (36.0-47.0); HEMOGLOBIN 12.4 g/dL (12.0-15.5); LYMPHOCYTES % (AUTO) 23.8 % (13-45); MEAN CORPUSCULAR HEMOGLOBIN 26.3 pg (27.0-33.4); MEAN CORPUSCULAR HGB CONC 32.9 g/dL (32.0-36.0); MEAN CORPUSCULAR VOLUME 80 fl (80-97); MONOCYTES % (AUTO) 13.9 % (3-13); PLATELET COUNT 473 10^3/uL (150-450); RED BLOOD COUNT 4.71 10^6/uL (3.72-5.28); SEGMENTED NEUTROPHILS % (AUTO) 57.8 % (42-78); TOTAL CELLS COUNTED % (AUTO) 100 %
[2019-06-17 10:39] LABS: APPEARANCE,URINE CLEAR; BILIRUBIN,URINE NEGATIVE (NEGATIVE); COLOR,URINE YELLOW; GLUCOSE, URINE NEGATIVE (NEGATIVE); KETONES,URINE NEGATIVE (NEGATIVE); LEUKOCYTE ESTERASE,URINE NEGATIVE (NEGATIVE); NITRITE,URINE NEGATIVE (NEGATIVE); PROTEIN,URINE NEGATIVE (NEGATIVE); URINE SPECIFIC GRAVITY 1.023
[2019-06-17 10:51] LABS: ALBUMIN 3.9 g/dL (3.5-5.0); ALKALINE PHOSPHATASE 394 U/L (38-126); ANION GAP 10 (5-19); ASPARTATE AMINO TRANSFERASE 52 U/L (14-36); BILIRUBIN,DIRECT 0.2 mg/dL (0.0-0.4); BILIRUBIN,TOTAL 0.5 mg/dL (0.2-1.3); BLOOD UREA NITROGEN 11 mg/dL (7-20); CALCIUM 9.6 mg/dL (8.4-10.2); CARBON DIOXIDE 30 mmol/L (22-30); CHLORIDE 103 mmol/L (98-107); GLUCOSE 77 mg/dL (75-110); POTASSIUM 3.8 mmol/L (3.6-5.0); TOTAL PROTEIN 9.1 g/dL (6.3-8.2)
--- NOTE | 2019-06-17 11:28 | RADIOLOGY REPORT (SQ) ---
EXAM DESCRIPTION: L SPINE WHOLE COMPLETED DATE/TIME: 06/17/2019 11:14 am REASON FOR STUDY: pulmonary nodules, LBP COMPARISON: None. NUMBER OF VIEWS: Five views including obliques. TECHNIQUE: AP, lateral, oblique, and sacral radiographic images acquired of the lumbar spine. LIMITATIONS: None. FINDINGS: MINERALIZATION: Normal. SEGMENTATION: Normal. No transitional anatomy. ALIGNMENT: Normal. VERTEBRAE: Maintained height. No fracture or worrisome bone lesion. DISCS: Preserved height. No significant osteophytes or end plate irregularity. POSTERIOR ELEMENTS: Pedicles and facets are intact. No pars defect or posterior arch defects. HARDWARE: None in the spine. PARASPINAL SOFT TISSUES: Normal. PELVIS: Intact as visualized. No fractures or worrisome bone lesions. SI joints intact. OTHER: No other significant finding. IMPRESSION: NORMAL 5 VIEW LUMBAR SPINE. TECHNICAL DOCUMENTATION: JOB ID: [id number] [employer]- All Rights Reserved Reading location - IP/workstation name: [email or web address]
--- NOTE | 2019-06-17 11:34 | RADIOLOGY REPORT (SQ) ---
EXAM DESCRIPTION: CT CHEST WITH COMPLETED DATE/TIME: 06/17/2019 11:09 am REASON FOR STUDY: pulmonary nodules, further eval COMPARISON: Chest radiograph TECHNIQUE: CT scan of the chest performed using helical scanning technique with dynamic intravenous contrast injection. Images reviewed with lung, soft tissue and bone windows. Reconstructed coronal and sagittal MPR and MIP images reviewed. All images stored on PACS. All CT scanners at this facility use dose modulation, iterative reconstruction, and/or weight based d osing when appropriate to reduce radiation dose to as low as reasonably achievable (ALARA). [facility]: Dose Right [facility]: CareDose [facility]: Dose Right [facility]: Teradose 4D [facility]: [employer] CONTRAST TYPE AND DOSE: contrast/concentration: Isovue 350.00 mg/ml; Total Contrast Delivered: 80.0 ml; Total Saline Delivered: 55.0 ml RENAL FUNCTION: None required. The patient is less than 50 years old. RADIATION DOSE: CT Rad equipment meets quality standard of care and radiation dose reduction techniq ues were employed. CTDIvol: 17.4 mGy. DLP: 564 mGy-cm. . LIMITATIONS: None. FINDINGS: LUNGS AND PLEURA: Innumerable poorly defined pulmonary nodules. The majority under 5 mm. Not completely solid. No effusions. No pneumothorax. HILAR AND MEDIASTINAL STRUCTURES: Extensive hilar and mediastinal adenopathy. HEART AND VASCULAR STRUCTURES: No aneurysm or dissection. No central pulmonary emboli. No pericardi al effusion. HARDWARE: None in the chest. UPPER ABDOMEN: Multiple poorly defined low-density lesions in the spleen. THYROID AND OTHER SOFT TISSUES: No masses. No adenopathy. BONES: No significant finding. OTHER: No other significant finding. IMPRESSION: Extensive pulmonary nodules with hilar and mediastinal adenopathy as well as masses in t he spleen. Most likely metastatic disease. Hematogenous infection would also be in the differential. TECHNICAL DOCUMENTATION: JOB ID: [id number] Quality ID # [id number]: Final reports with documentation of one or more dose reduction techniques (e.g., Au tomated exposure control, adjustment of the mA and/or kV according to patient size, use of iterative reconstruction technique) 2010 [email or web address]- All Rights Reserved Reading location - IP/workstation name: [email or web address]
--- NOTE | 2019-06-17 12:35 | ER Document Report ---
ED General - General Chief Complaint: Low Back Pain Stated Complaint: LOWER BACK PAIN Time Seen by Provider: 06/17/19 09:11 Primary Care Provider: LEEROY ROQUE MD [ACTIVE STAFF] - Follow up as needed Notes: Patient is a 43-year-old female with a history of hypertension who presents to the emergency department with a chief complaint of a cough. Patient reports she has had a dry nonproductive cough for about 1 month. Patient reports she has not been seen by her primary care physician for this. Patient reports shortness of breath and worsening shortness of breath when lying on her right side. Patient denies head or neck pain. Patient denies fever. Patient denies bloody sputum. Patient reports having normal appetite. Patient denies a history of IV drug use. Patient takes HCTZ and amlodipine for her high blood pressure. Patient also reports having lower back pain for about 1 month. Patient states that yesterday the left lower back pain started to radiate down her left leg. Patient reports that it feels like a sharp stabbing type pain. Patient denies numbness or tingling down the legs. Patient denies saddle anesthesia. Patient denies a history of cancer. TRAVEL OUTSIDE OF THE [place] IN LAST 30 DAYS: No - Related Data Allergies/Adverse Reactions: No Known Allergies Allergy (Verified 06/17/19 06:51) Past Medical History - Social History Smoking Status: Never Smoker Chew tobacco use (# tins/day): No Drug Abuse: None Family History: Arthritis, CAD, CVA, DM, Hyperlipidemia, Hypertension Patient has suicidal ideation: No Patient has homicidal ideation: No - Past Medical History Cardiac Medical History: Reports: Hx Hypercholesterolemia, Hx Hypertension Neurological Medical History: Denies: Hx Seizures Renal/ Medical History: Denies: Hx Peritoneal Dialysis Musculoskeletal Medical History: Reports Hx Arthritis, Reports Hx Musculoskeletal Trauma Psychiatric Medical History: Reports: Hx Depression Past Surgical History: Reports: Hx Section - x 2, Hx Tubal Ligation - Immunizations Immunizations up to date: Yes Hx Diphtheria, Pertussis, Tetanus Vaccination: Yes Review of Systems - Review of Systems Constitutional: No symptoms reported EENT: No symptoms reported Cardiovascular: No symptoms reported Respiratory: See HPI Gastrointestinal: No symptoms reported Genitourinary: No symptoms reported Female Genitourinary: No symptoms reported Musculoskeletal: No symptoms reported Skin: No symptoms reported Hematologic/Lymphatic: No symptoms reported Neurological/Psychological: No symptoms reported Physical Exam - Vital signs Vitals: Temp Pulse Resp BP Pulse Ox 98.0 F 88 16 140/83 H 98 06/17/19 06:04 06/17/19 06:04 06/17/19 06:04 06/17/19 06:04 06/17/19 06:04 Interpretation: Normal - Notes Notes: GENERAL: Well-appearing, well-nourished and in no acute distress. HEAD: Atraumatic, normocephalic. EYES: Pupils equal round and reactive to light, extraocular movements intact, sclera anicteric, conjunctiva are normal. ENT: Nares patent, oropharynx clear without exudates. Moist mucous membranes. NECK: Normal range of motion, supple without lymphadenopathy or JVD. LUNGS: Breath sounds clear to auscultation bilaterally and equal. No wheezes rales or rhonchi. HEART: Regular rate and rhythm without murmurs, rubs or gallops. ABDOMEN: Soft, nontender, normoactive bowel sounds. No guarding, no rebound. No masses appreciated. BACK: No cervical, thoracic, lumbar midline tenderness. No saddle anesthesia, normal distal neurovascular exam. GENITOURINARY: Deferred. EXTREMITIES: Normal range of motion, no pitting or edema. No clubbing or cyanosis. NEUROLOGICAL: Cranial nerves II through XII grossly intact. Normal speech, normal gait. PSYCH: Normal mood, normal affect. SKIN: Warm, Dry, normal turgor, no rashes or lesions noted. Course - Re-evaluation Re-evalutation: 06/17/19 12:[address] Roque in regards to the patient's symptoms as well as the CT read. He does recommend if possible get an MRI of the thoracic and lumbar spine with contrast today with the patient is having the back pain. He also recommends getting a urinalysis, urine culture and blood cultures. He states he will follow-up with the patient in the office this week and to have the patient call tomorrow. I will order an MRI and call him with the results. I did discuss this with the patient and she is in agreement of this plan. I will give her pain medication as well as anti-nausea medication. 06/17/19 17:26 Patient is resting comfortably in no acute distress. Patient does deny pain at this time. I did speak with Dr. Roque in regards to the MRI of the thoracic and lumbar spine. There does not appear to be any spinal involvement at this time. He does recommend the patient to call the office tomorrow to schedule a follow-up appointment this week. I did discuss this with the patient. We will give the patient antinausea and pain medication to go home with. 06/17/19 17:[address] the patient on Percocet. Patient reports that she cannot take this as it makes her extremely ill. Patient reports she can take hydrocodone and has taken [place] without any issues. We will give the patient a [place] to go pack as well as a prescription for [place]. Patient no acute distress. Patient verbalized understanding of treatment plan and states she will call the office tomorrow. 06/17/19 19:40 Patient's blood pressure was elevated in the 180s systolic. Patient reports she has not had any of her medications today as she has been here in the emergency department. Patient reports she does take amlodipine 5 mg and hydrochlorothiazide 25 mg. I will give her a dose prior to discharge. Patient was able to verify her medications via pictures of the medication bottles. I did provide her with a one-month supply of these medications. Patient no acute distress and states she is ready to go home. - Vital Signs Vital signs: Temp Pulse Resp BP Pulse Ox 98.5 F 89 16 184/86 H 94 06/17/19 19:18 06/17/19 19:18 06/17/19 19:18 06/17/19 19:18 06/17/19 19:18 - Laboratory Result Diagrams: 06/17/19 10:07 06/17/19 10:07 Laboratory results interpreted by me: 06/17/19 06/17/19 06/17/19 10:07 10:07 10:07 MCH 26.3 L RDW 15.0 H Plt Count 473 H Bell % (Auto) 13.9 H AST 52 H Alkaline Phosphatase 394 H Total Protein 9.1 H Urine Blood SMALL H Urine Urobilinogen 4.0 H - Diagnostic Test Radiology reviewed: Reports reviewed Radiology results interpreted by me: 06/17/19 12:31 Chest X-Ray 06/17/19 09:01 IMPRESSION: Findings are most likely related to metastatic disease. Nodular pneumonia in the differential including tuberculosis. Chest CT 06/17/19 09:53 IMPRESSION: Extensive pulmonary nodules with hilar and mediastinal adenopathy as well as masses in the spleen. Most likely metastatic disease. Hematogenous infection would also be in the differential. Lumbar Spine X-Ray 06/17/19 09:53 IMPRESSION: NORMAL 5 VIEW LUMBAR SPINE. 06/17/19 17:37 Chest X-Ray 06/17/19 09:01 IMPRESSION: Findings are most likely related to metastatic disease. Nodular pneumonia in the differential including tuberculosis. Chest CT 06/17/19 09:53 IMPRESSION: Extensive pulmonary nodules with hilar and mediastinal adenopathy as well as masses in the spleen. Most likely metastatic disease. Hematogenous infection would also be in the differential. Lumbar Spine X-Ray 06/17/19 09:53 IMPRESSION: NORMAL 5 VIEW LUMBAR SPINE. Lumbar Spine MRI 06/17/19 13:00 IMPRESSION: Degenerative anterolisthesis of L4 over L5 with borderline central canal narrowing. No marrow replacement process worrisome for metastatic disease Thoracic Spine MRI 06/17/19 13:00 IMPRESSION: No primary thoracic spine abnormality. Normal thoracic cord. Discharge - Discharge Clinical Impression: Cough, Shortness of breath Condition: Stable Disposition: HOME, SELF-CARE Additional Instructions: Today you are seen in the emergency department for cough and shortness of breath. We did obtain a CT of the chest which did show some concerning nodules that he will require a further evaluation by an oncologist. I did speak with Dr. Roque who would gladly see the patient in the office this week. Patient to call the office tomorrow to schedule a follow-up appointment. You have been prescribed some pain medication. The pain medication is a narcotic and can make you drowsy. Do not drive or operate heavy machinery while on this pain medication. You have also been prescribed antinausea medication called Zofran. Please take this only as needed. Please return emergency department if you develop any numbness or tingling in your lower extremities, loss of bowel or bladder, severe abdominal pain, severe shortness of breath, vomiting or coughing up blood, fever or any other concerning signs or symptoms. Prescriptions: Benzonatate [Tessalon Perles 100 mg Capsule] 100 mg PO Q8HP PRN #21 capsule PRN Reason: Hydrochlorothiazide [Hydrodiuril 25 mg Tablet] 25 mg PO DAILY #30 tablet Hydrocodone/Acetaminophen [[place] 5-325 mg Tablet] 1 tab PO Q6 PRN #12 tablet PRN Reason: Amlodipine Besylate [Norvasc 5 mg Tablet] 5 mg PO DAILY #30 tablet Oxycodone HCl/Acetaminophen [Percocet 5-325 mg Tablet] 1 tab PO Q6 #15 tablet Referrals: LEEROY ROQUE MD [ACTIVE STAFF] - Follow up as needed
[2019-06-17] MEDS ORDERED: MORPHINE SULFATE 10 MG/ML INJ IV ONE (12:58)
[2019-06-17] MEDS ORDERED: ONDANSETRON HCL INJ/PF 4 MG/2 ML SDV IV ONE (12:58)
--- NOTE | 2019-06-17 17:05 | RADIOLOGY REPORT (SQ) ---
EXAM DESCRIPTION: MRI THORACIC SPINE COMBO COMPLETED DATE/TIME: 06/17/2019 4:37 pm REASON FOR STUDY: back pain, r/o mets, suspicious chest CT COMPARISON: CT chest 06/17/2019 Lumbar spine plain films 06/17/2019 CT Abdomen pelvis 03/20/2017 TECHNIQUE: Sagittal and Axial imaging includes T1, T2, STIR and gradient echo sequences. T1 post ga dolinium sequences. CONTRAST TYPE AND DOSE: 20 mL Dotarem. RENAL FUNCTION: Not indicated. ACR Type II contrast agent associated with few, if any, unconfounded cases of NSF LIMITATIONS: None. FINDINGS: LOCALIZER: No worrisome findings. ALIGNMENT: Normal. VERTEBRAE: Intact. BONE MARROW: Normal. No marrow replacement or reactive changes. HARDWARE: None in the spine. CORD: Normal in size and signal intensity. SOFT TISSUES: No soft tissue masses. THORACIC DISCS T1-T12: No significant spinal stenosis or exit foraminal stenosis. LOWER CERVICAL: Incompletely imaged. No significant spinal stenosis or exit foraminal stenosis. UPPER LUMBAR: Incompletely imaged. No significant spinal stenosis or exit foraminal stenosis. ENHANCEMENT: No abnormal vertebral body, thoracic cord or conus enhancement. OTHER: Mediastinal adenopathy at the edge of the field of view. Lung parenchyma exhibits too numerou s to count subcentimeter nodules. Differential is atypical infection/fungal infection or JAY/MTB isael clair metastatic disease. IMPRESSION: No primary thoracic spine abnormality. Normal thoracic cord. TECHNICAL DOCUMENTATION: JOB ID: [id number] [employer] All Rights Reserved Reading location - IP/workstation name: [email or web address]
--- NOTE | 2019-06-17 17:09 | RADIOLOGY REPORT (SQ) ---
EXAM DESCRIPTION: MRI LUMBAR SPINE COMBO COMPLETED DATE/TIME: 06/17/2019 4:36 pm REASON FOR STUDY: back pain, r/o mets, suspicious chest CT COMPARISON: MRI thoracic spine same date CT chest same date Lumbar spine plain films same date CT abdomen pelvis 03/20/2017 TECHNIQUE: Sagittal and Axial imaging includes T1, T1 post gadolinium, T2, STIR and gradient echo se quences. Coronal T2/HASTE imaging. CONTRAST TYPE AND DOSE: 20 mL Dotarem. RENAL FUNCTION: Not indicated. ACR Type II contrast agent associated with few, if any, unconfounded cases of NSF LIMITATIONS: None. FINDINGS: VISUALIZED UPPER ABDOMEN: Numerous bilateral renal cortical cysts. Innumerable lesions in the spleen, mild splenomegaly SEGMENTATION: No transitional anatomy. The lowest well-developed disc space is labeled L5-S1. ALIGNMENT: Minimal grade 1 anterolisthesis of L4 over L5 related to bulky facet arthropathy VERTEBRAE: Intact. No fractures. BONE MARROW: Normal. No marrow replacement or reactive changes. DISC SIGNAL: Normal. No significant abnormal signal or loss of height. POSTERIOR ELEMENTS: Diffuse lower lumbar facet arthropathy from L3-4 through L5-S1. HARDWARE: None in the spine. CORD AND CONUS: Normal in size and signal intensity. Conus at the L1-2 level. SOFT TISSUES: No aortic aneurysm seen. No bulky retroperitoneal adenopathy or mass. No paraspinal mas s or fluid. L1-L2: No significant spinal stenosis or exit foraminal stenosis. L2-L3: No significant spinal stenosis or exit foraminal stenosis. L3-L4: No significant spinal stenosis or exit foraminal stenosis. Moderate bilateral facet arthropat hy L4-L5: Borderline central canal narrowing results from broad diffuse posterior disc bulge and bulky b ilateral facet and ligament hypertrophy. Mild bilateral foraminal narrowing without definite exiting L4 nerve root impingement. L5-S1: Mild diffuse posterior disc bulging, mild facet hypertrophy. No central or foraminal stenosis SACRUM: Visualized upper sacrum intact. ENHANCEMENT: No abnormal conus, lumbar nerve root, or vertebral body enhancement OTHER: No other significant findings. IMPRESSION: Degenerative anterolisthesis of L4 over L5 with borderline central canal narrowing. No marrow replacement process worrisome for metastatic disease TECHNICAL DOCUMENTATION: JOB ID: [id number] [employer]- All Rights Reserved Reading location - IP/workstation name: [email or web address]
[2019-06-17] MEDS ORDERED: ONDANSETRON ODT 4 MG TAB (6 TAB/ER DISP) PO PRN (17:29)
[2019-06-17] MEDS ORDERED: HYDROCODONE/ACETAMINOPHEN 5-325 MG (6 TAB/ER DISP) PO PRN (17:34)
[2019-06-17 19:24] VITALS: BP 184/86
[2019-06-17] MEDS ORDERED: AMLODIPINE BESYLATE 5 MG TABLET PO ONE (19:40)
[2019-06-17] MEDS ORDERED: HYDROCHLOROTHIAZIDE 12.5 MG TABLET PO ONE ×2 (19:40→19:57)
== END 2019-06-17 20:03 | disposition home or self-care (01) ==
LOC: ER 05:57
DX: R05 Cough (principal); R06.02 Shortness of breath; M54.5 Low back pain; I10 Essential (primary) hypertension; Z79.899 Other long term (current) drug therapy
CPT/HCPCS: 99284; 96372; 96374; 96375; 36415; 87040; 87086; 85025; 80053; 81001; 72157; 72158; 71046; 72110; 71260; A9576; J1885; J2270; J2405

== ENCOUNTER 2019-06-29 16:27 | Emergency (ER) | payer SELFPAY ==
--- NOTE | 2019-06-29 16:51 | ER Document Report ---
ED Medical Screen (RME) - General Chief Complaint: Shortness Of Breath Stated Complaint: SHORTNESS OF BREATH Time Seen by Provider: 06/29/19 16:46 Primary Care Provider: [facility] [Primary Care Provider] - Follow up as needed TRAVEL OUTSIDE OF THE [place] IN LAST 30 DAYS: No - HPI Notes: 06/29/19 16:50 Patient is a 43-year-old female recently diagnosed with cancer who presents complaining of increased shortness of breath over the past 24 hours and chest tightness that started today. Patient states that she was seen by oncology recently and they are not sure if the findings on the chest CT scan of the lungs were metastasis or not so she does have an appointment set up in [place] in 6 days. No fever. She will have occasional chills. I have treated and performed a rapid initial assessment of this patient. A comprehensive ED assessment and evaluation of the patient, analysis of test results and completion of medical decision making process will be conducted by additional ED providers. PHYSICAL EXAMINATION: GENERAL: Well-appearing, well-nourished and in no acute distress. A&Ox4. Answers questions appropriately. - Related Data Allergies/Adverse Reactions: acetaminophen [From Percocet] Allergy (Verified 06/29/19 16:38) Hives oxycodone [From Percocet] Allergy (Verified 06/29/19 16:38) Hives Past Medical History - Social History Chew tobacco use (# tins/day): No Frequency of alcohol use: None Drug Abuse: None - Past Medical History Cardiac Medical History: Reports: Hx Hypercholesterolemia, Hx Hypertension Neurological Medical History: Denies: Hx Seizures Renal/ Medical History: Denies: Hx Peritoneal Dialysis Musculoskeltal Medical History: Reports Hx Arthritis, Reports Hx Musculoskeletal Trauma Psychiatric Medical History: Reports: Hx Depression Past Surgical History: Reports: Hx Section - x 2, Hx Tubal Ligation - Immunizations Immunizations up to date: Yes Hx Diphtheria, Pertussis, Tetanus Vaccination: Yes Physical Exam - Vital signs Vitals: Temp Pulse Resp BP Pulse Ox 98.1 F 102 H 28 H 149/87 H 95 06/29/19 16:28 06/29/19 16:28 06/29/19 16:28 06/29/19 16:28 06/29/19 16:28 Course - Vital Signs Vital signs: Temp Pulse Resp BP Pulse Ox 98.1 F 102 H 28 H 149/87 H 95 06/29/19 16:28 06/29/19 16:28 06/29/19 16:28 06/29/19 16:28 06/29/19 16:28 Doctor's Discharge - Discharge Referrals: [facility] [Primary Care Provider] - Follow up as needed
--- NOTE | 2019-06-29 17:24 | RADIOLOGY REPORT (SQ) ---
EXAM DESCRIPTION: CHEST 2 VIEWS COMPLETED DATE/TIME: 06/29/2019 5:09 pm REASON FOR STUDY: inc sob, chest pressure from prev visit COMPARISON: 06/17/2019 EXAM PARAMETERS: NUMBER OF VIEWS: two views TECHNIQUE: Digital Frontal and Lateral radiographic views of the chest acquired. RADIATION DOSE: NA LIMITATIONS: none FINDINGS: LUNGS AND PLEURA: Diffuse pulmonary nodularity MEDIASTINUM AND HILAR STRUCTURES: No masses or contour abnormalities. HEART AND VASCULAR STRUCTURES: Heart normal size. No evidence for failure. BONES: No acute findings. HARDWARE: None in the chest. OTHER: No other significant finding. IMPRESSION: Metastatic disease versus granulomatous disease such is histoplasmosis. TECHNICAL DOCUMENTATION: JOB ID: [id number] [employer]- All Rights Reserved Reading location - IP/workstation name: [email or web address]
[2019-06-29 17:42] LABS: ABSOLUTE BASOPHILS # (AUTO) 0.1 10^3/uL (0.0-0.2); ABSOLUTE EOSINOPHILS # (AUTO) 0.2 10^3/uL (0.0-0.6); ABSOLUTE LYMPHOCYTES (AUTO) 1.6 10^3/uL (0.5-4.7); ABSOLUTE MONOCYTES (AUTO) 0.8 10^3/uL (0.1-1.4); ABSOLUTE NEUT (AUTO) 3.2 10^3/uL (1.7-8.2); EOSINOPHILS % (AUTO) 3.7 % (0-6); HEMATOCRIT 38.2 % (36.0-47.0); HEMOGLOBIN 12.9 g/dL (12.0-15.5); LYMPHOCYTES % (AUTO) 27.7 % (13-45); MEAN CORPUSCULAR HEMOGLOBIN 26.7 pg (27.0-33.4); MEAN CORPUSCULAR HGB CONC 33.6 g/dL (32.0-36.0); MEAN CORPUSCULAR VOLUME 79 fl (80-97); MONOCYTES % (AUTO) 13.6 % (3-13); PLATELET COUNT 515 10^3/uL (150-450); RED BLOOD COUNT 4.81 10^6/uL (3.72-5.28); RED CELL DISTRIBUTION WIDTH 15.2 % (11.5-14.0); TOTAL CELLS COUNTED % (AUTO) 100 %; WHITE BLOOD COUNT 5.9 10^3/uL (4.0-10.5)
[2019-06-29 17:43] LABS: VENOUS BLOOD HCO3 32.6 mmol/L (20-32); VENOUS BLOOD PCO2 55.6 mmHg (35-63); VENOUS BLOOD PH 7.39 (7.30-7.42)
[2019-06-29 17:54] LABS: ALBUMIN 4.2 g/dL (3.5-5.0); ALKALINE PHOSPHATASE 364 U/L (38-126); ANION GAP 10 (5-19); ASPARTATE AMINO TRANSFERASE 50 U/L (14-36); BILIRUBIN,DIRECT 0.2 mg/dL (0.0-0.4); BILIRUBIN,TOTAL 0.6 mg/dL (0.2-1.3); BLOOD UREA NITROGEN 17 mg/dL (7-20); CALCIUM 9.9 mg/dL (8.4-10.2); CARBON DIOXIDE 32 mmol/L (22-30); CHLORIDE 98 mmol/L (98-107); GLUCOSE 107 mg/dL (75-110); POTASSIUM 3.8 mmol/L (3.6-5.0); TOTAL PROTEIN 9.7 g/dL (6.3-8.2)
[2019-06-29 18:05] LABS: NT PRO BNP 38 pg/mL (<125)
[2019-06-29 18:11] LABS: TROPONIN I < 0.012 ng/mL
--- NOTE | 2019-06-29 18:58 | ER Document Report ---
ED Respiratory Problem - General Mode of Arrival: Ambulatory Information source: Patient TRAVEL OUTSIDE OF THE [place] IN LAST 30 DAYS: No - HPI Patient complains to provider of: Chest pain, Cough, Short of breath Onset: Yesterday Severity: Moderate Pain Level: Denies Context: denies: Hx asthma, Smoker Cough: Nonproductive Associated symptoms: Chest pain/discomfort, Cough, Short of breath. denies: Bloody cough, Wheezing Similar symptoms previously: No Recently seen / treated by doctor: Yes <DUYEN MCNEILL - Last Filed: 06/29/19 20:40> <WILBER KENNEDY - Last Filed: 06/30/19 06:03> - General Chief Complaint: Shortness Of Breath Stated Complaint: SHORTNESS OF BREATH Time Seen by Provider: 06/29/19 16:46 Primary Care Provider: LEEROY LINCOLN MD [ACTIVE STAFF] - 07/02/19 Notes: Patient presents complaining of shortness of breath and chest pain that started yesterday. Patient states that symptoms have been intermittent. Patient states that she will have shortness of breath and chest pain when she is supine and when she is ambulating. Patient states when she is sitting upright she is comfortable. Patient does report cough for the past 6 weeks. Patient states she does have occasional diaphoresis. Patient was recently diagnosed with metastatic lung disease and is in the process of still being evaluated on outpatient basis. Patient denies any nausea or vomiting. Patient denies any fever. (DUYEN MCNEILL) - Related Data Allergies/Adverse Reactions: acetaminophen [From Percocet] Allergy (Verified 06/29/19 16:38) Hives oxycodone [From Percocet] Allergy (Verified 06/29/19 16:38) Hives Past Medical History - General Information source: Patient - Social History Smoking Status: Never Smoker Chew tobacco use (# tins/day): No Frequency of alcohol use: None Drug Abuse: None Lives with: Family Family History: Arthritis, CAD, CVA, DM, Hyperlipidemia, Hypertension Patient has suicidal ideation: No Patient has homicidal ideation: No - Past Medical History Cardiac Medical History: Reports: Hx Hypercholesterolemia, Hx Hypertension Neurological Medical History: Denies: Hx Seizures Renal/ Medical History: Denies: Hx Peritoneal Dialysis Malignancy Medical History: Reports: Other - Metastatic lung lesions Musculoskeletal Medical History: Reports Hx Arthritis, Reports Hx Musculoskeletal Trauma Psychiatric Medical History: Reports: Hx Depression Past Surgical History: Reports: Hx Section - x 2, Hx Tubal Ligation - Immunizations Immunizations up to date: Yes Hx Diphtheria, Pertussis, Tetanus Vaccination: Yes <DUYEN MCNEILL - Last Filed: 06/29/19 20:40> Review of Systems - Review of Systems Constitutional: No symptoms reported. denies: Fever, Recent illness EENT: No symptoms reported Cardiovascular: Chest pain Respiratory: Cough, Short of breath Gastrointestinal: No symptoms reported. denies: Abdominal pain, Nausea Genitourinary: No symptoms reported Female Genitourinary: No symptoms reported Musculoskeletal: No symptoms reported Skin: No symptoms reported Hematologic/Lymphatic: No symptoms reported Neurological/Psychological: No symptoms reported <OSITODUYEN KABA - Last Filed: 06/29/19 20:40> Physical Exam - General General appearance: Appears well, Alert In distress: None - HEENT Head: Normocephalic, Atraumatic Eyes: Normal Conjunctiva: Normal Nasal: Normal Mouth/Lips: Normal Mucous membranes: Normal Neck: Normal, Supple. No: Lymphadenopathy - Respiratory Respiratory status: No respiratory distress Chest status: Nontender Breath sounds: Normal Chest palpation: Normal - Cardiovascular Rhythm: Tachycardia Heart sounds: S1 appreciated, S2 appreciated Murmur: No - Abdominal Inspection: Normal Distension: No distension Bowel sounds: Normal Tenderness: Nontender - Back Back: Normal, Nontender. No: CVA tenderness - Extremities General upper extremity: Normal inspection, Normal strength General lower extremity: Normal inspection, Normal strength - Neurological Neuro grossly intact: Yes Cognition: Normal Quynh Coma Scale Eye Opening: Spontaneous Quynh Coma Scale Verbal: Oriented Nenzel Coma Scale Motor: Obeys Commands Nenzel Coma Scale Total: 15 - Psychological Associated symptoms: Normal affect, Normal mood - Skin Skin Temperature: Warm Skin Moisture: Dry Skin Color: Normal <DUYEN MCNEILL - Last Filed: 06/29/19 20:40> - Vital signs Vitals: Temp Pulse Resp BP Pulse Ox 98.1 F 102 H 28 H 149/87 H 95 06/29/19 16:28 06/29/19 16:28 06/29/19 16:28 06/29/19 16:28 06/29/19 16:28 Course - Laboratory Result Diagrams: 06/29/19 17:24 06/29/19 17:24 <DUYEN MCNEILL - Last Filed: 06/29/19 20:40> - Laboratory Result Diagrams: 06/29/19 17:24 06/29/19 17:24 <WILBER KENNEDY - Last Filed: 06/30/19 06:03> - Re-evaluation Re-evalutation: 06/29/19 18:[address] Moe regarding patient presentation diagnostic evaluation. Recommends CTA of chest to evaluate for possible PE given history of metastatic lesions, dyspnea and chest pain 06/29/19 20:19 bedside report and handoff given to Reyes SANDHU (DUYEN MCNEILL) CTA unfortunately a poor contrast bolus timing but does not show any obvious central lesions. However patient is not tachypneic, tachycardic, or hypoxic. She has no respiratory effort on my evaluation. 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 Patient does not have a close follow-up appointment scheduled, she is only scheduled to see pulmonology next week. I did call and speak with Dr. Mendoza, on-call for patient's oncologist, discussed patient's presentation, history, work-up. Patient will be discharged at this time but she will be provided with additional pain medicine and she will call Tuesday to perform very close follow-up in the office for faster management. This was Dr. Mendoza's recommendation. I did discuss with patient, patient and significant other state appreciation and agreement with plan. (WILBER KENNEDY) - Vital Signs Vital signs: Temp Pulse Resp BP Pulse Ox 98.3 F 96 26 H 128/85 H 97 06/29/19 21:55 06/29/19 21:55 06/29/19 19:01 06/29/19 21:55 06/29/19 21:55 - Laboratory Laboratory results interpreted by me: 06/29/19 06/29/19 06/29/19 17:24 17:24 17:24 MCV 79 L MCH 26.7 L RDW 15.2 H Plt Count 515 H [place] % (Auto) 13.6 H VBG HCO3 32.6 H Carbon Dioxide 32 H AST 50 H Alkaline Phosphatase 364 H Total Protein 9.7 H Discharge <DUYEN MCNEILL - Last Filed: 06/29/19 20:40> <WILBER KENNEDY - Last Filed: 06/30/19 06:03> - Discharge Clinical Impression: Dyspnea on exertion Chest pain Qualifiers: Chest pain type: unspecified Qualified Code(s): R07.9 - Chest pain, unspecified Condition: Stable Disposition: HOME, SELF-CARE Additional Instructions: Your heart work-up today is negative. Your imaging shows possible spreading of the cancer, no clots are seen, I did call and speak with Dr. Mendoza who is on- call for Dr. Lincoln, please call on Tuesday, they are expecting your call. You have been provided with oral morphine to try to better control your symptoms, take as prescribed. Come back if you are worse including increased difficulty breathing, fever, passing out, severe worsening pain, or any other concerning symptoms. Prescriptions: Morphine Sulfate [Morphine Ir 15 Mg Tablet] 15 mg PO TID PRN #12 tablet PRN Reason: Referrals: LEEROY LINCOLN MD [ACTIVE STAFF] - 07/02/19
[2019-06-29] MEDS ORDERED: MORPHINE SULFATE 10 MG/ML INJ IV ONE (20:12)
--- NOTE | 2019-06-29 20:23 | RADIOLOGY REPORT (SQ) ---
EXAM DESCRIPTION: CT CHEST ANGIOGRAPHY WITHOUT THEN WITH IV CONTRAST COMPLETED DATE/TME: 06/29/2019 18:57 CLINICAL HISTORY: 43 years, Female, cp, dyspnea, hx met lung lesions COMPARISON: Contrast enhanced CT chest performed on 06/17/2019 TECHNIQUE: Contrast enhanced CT chest was performed after the uneventful administration of intravenous contrast. Oblique MIPS were created. Images stored on PACS. All CT scanners at this facility use dose modulation, iterative reconstruction, and/or weight based dosing when appropriate to reduce radiation dose to as low as reasonably achievable (ALARA). [facility]: Dose Right [facility]: CareDose [facility]: Dose Right [facility]: Teradose 4D [facility]: [employer] LIMITATIONS: None. FINDINGS: Central airways are patent. Lung windows show innumerable irregularly shaped pulmonary nodules throughout both lungs. These appear fairly similar configuration to the previous examination dated 06/17/2019. Mediastinal windows show persistent bilateral supraclavicular lymphadenopathy as well as mediastinal/bilateral hilar lymphadenopathy, also fairly similar in configuration to the prior study. The largest lymph node is located about the subcarinal region measuring approximately 3.3 x 1.9 cm in size on image 49 of series 3. Additional right paraesophageal and pericardiophrenic lymphadenopathy is also evident, similar to the prior. Heart shows no suspicious abnormality. The study is substantially limited for the evaluation of pulmonary emboli secondary to contrast bolus timing. No large central filling defect is identified within the main pulmonary artery or within the right/left pulmonary arteries. Limited evaluation of the upper abdomen reveals multiple low density lesions throughout the spleen with additional bulky gilbert hepatic and celiac axis lymphadenopathy, similar to the prior. Innumerable hypodense lesions are also noted throughout the kidneys bilaterally. Bone windows show no destructive osseous lesions. IMPRESSION: Limited study for the assessment of pulmonary emboli secondary to contrast bolus timing. No large central filling defects are identified. Unchanged appearance of innumerable pulmonary nodules throughout both lungs with bilateral supraclavicular, mediastinal, bilateral hilar, and upper abdominal lymphadenopathy, suspicious for widespread metastatic disease. Additional hypodense lesions throughout the spleen and both kidneys are indeterminate, though could also indicate hematogenous spread of malignancy. TECHNICAL DOCUMENTATION: Quality ID # [id number]: Final reports with documentation of one or more dose reduction techniques (e.g., Automated exposure control, adjustment of the mA and/or kV according to patient size, use of iterative reconstruction technique) copyright 2011 [employer]- All Rights Reserved
--- NOTE | 2019-06-29 21:26 | EKG REPORT ---
SEVERITY:- NORMAL ECG - SINUS RHYTHM : Confirmed by: Brandon Rogers MD 29-Jun-2019 21:25:33
[2019-06-29 22:01] VITALS: BP 128/85
== END 2019-06-29 22:01 | disposition home or self-care (01) ==
LOC: ER 16:27
DX: R07.9 Chest pain, unspecified (principal); R06.02 Shortness of breath; R06.00 Dyspnea, unspecified; R05 Cough
CPT/HCPCS: 93005; 99285; 96374; 36415; 85025; 80053; 84484; 82803; 83880; 71046; 71275; 93010; J2270

== ENCOUNTER 2019-07-08 14:34 | Emergency (ER) | payer SELFPAY ==
--- NOTE | 2019-07-08 15:09 | ER Document Report ---
ED Medical Screen (RME) - General Chief Complaint: Allergic Reaction Stated Complaint: POSSIBLE ALLERGIC REACTION Time Seen by Provider: 07/08/19 15:03 Primary Care Provider: MODESTO ARCHULETA MD [Primary Care Provider] - Follow up as needed Mode of Arrival: Ambulatory Information source: Patient Notes: 43-year-old female presented to ED for complaint of itching and hives. She states she took a morphine tablet at home for the first time on Tuesday. She states on Tuesday morning at 3 AM she woke up itching took 25 mg of Benadryl and went back to sleep. She states when she woke up she is all day then this morning at 7 AM she woke up itching took a hot shower and then noticed she had hives on her buttocks and thighs. She states that was the first time she never taken the pill form of morphine but she has had injectables before. She states she does have a history of borderline diabetes chronic back problems high blood pressure cholesterol depression and lung problems she is not sure what yet. She states she has a lot of lymph nodes in her chest and abdomen is supposed to get a biopsy and see the oncologist for that. Patient is alert oriented respi rations regular nonlabored speaking in full sentences. She states the only problem is the itching on her all over. She states the hives are only on the back of her thighs and buttocks. She states she has not changed any lotions any dietary changes any change in her laundry detergents. I have greeted and performed a rapid initial assessment of this patient. A comprehensive ED assessment and evaluation of the patient, analysis of test results and completion of medical decision making process will be conducted by an additional ED providers. TRAVEL OUTSIDE OF THE [place] IN LAST 30 DAYS: No - Related Data Allergies/Adverse Reactions: acetaminophen [From Percocet] Allergy (Verified 06/29/19 16:38) Hives oxycodone [From Percocet] Allergy (Verified 06/29/19 16:38) Hives Past Medical History - Past Medical History Cardiac Medical History: Reports: Hx Hypercholesterolemia, Hx Hypertension Neurological Medical History: Denies: Hx Seizures Renal/ Medical History: Denies: Hx Peritoneal Dialysis Musculoskeltal Medical History: Reports Hx Arthritis, Reports Hx Musculoskeletal Trauma Psychiatric Medical History: Reports: Hx Depression Past Surgical History: Reports: Hx Section - x 2, Hx Tubal Ligation - Immunizations Immunizations up to date: Yes Hx Diphtheria, Pertussis, Tetanus Vaccination: Yes Physical Exam - Vital signs Vitals: Temp Pulse Resp BP Pulse Ox 98.6 F 100 16 144/91 H 95 07/08/19 14:39 07/08/19 14:39 07/08/19 14:39 07/08/19 14:39 07/08/19 14:39 Course - Vital Signs Vital signs: Temp Pulse Resp BP Pulse Ox 98.6 F 100 16 144/91 H 95 07/08/19 14:39 07/08/19 14:39 07/08/19 14:39 07/08/19 14:39 07/08/19 14:39 Doctor's Discharge - Discharge Referrals: MODESTO ARCHULETA MD [Primary Care Provider] - Follow up as needed
[2019-07-08] MEDS ORDERED: FAMOTIDINE 20 MG TABLET PO ONE (15:10)
[2019-07-08] MEDS ORDERED: HYDROXYZINE PAMOATE 50 MG CAPSULE PO ONE (15:10)
[2019-07-08] MEDS ORDERED: PREDNISONE 20 MG TABLET PO ONE ×2 (17:39→17:40)
--- NOTE | 2019-07-08 18:03 | ER Document Report ---
ED General - General Chief Complaint: Allergic Reaction Stated Complaint: POSSIBLE ALLERGIC REACTION Time Seen by Provider: 07/08/19 15:03 Primary Care Provider: MODESTO ARCHULETA MD [Primary Care Provider] - Follow up as needed Mode of Arrival: Ambulatory Information source: Patient Notes: 43-year-old female with chronic pain, hypertension, hyperlipidemia presents with hives, itching. Patient states that 4 days prior to arrival she started a new pain medication morphine and shortly afterwards developed burning itching skin and hives. Patient immediately discontinue the medication but has had intermittent episodes of urticaria. She did attempt to take 1 dose of Benadryl earlier today. She denies any coughing, difficulty swallowing, wheezing, shortness of breath, vomiting. TRAVEL OUTSIDE OF THE [place] IN LAST 30 DAYS: No - HPI Onset: Other Onset/Duration: Gradual, Persistent Quality of pain: No pain Severity: None Pain Level: Denies Associated symptoms: denies: Nonproductive cough, Productive cough, Fever, Nausea, Vomiting, Shortness of breath Exacerbated by: Denies Relieved by: Denies Similar symptoms previously: No Recently seen / treated by doctor: No - Related Data Allergies/Adverse Reactions: acetaminophen [From Percocet] Allergy (Verified 06/29/19 16:38) Hives oxycodone [From Percocet] Allergy (Verified 06/29/19 16:38) Hives Home Medications: morphine. hctz. tessalon. hydrocodone. amlodipine Past Medical History - General Information source: Patient - Social History Smoking Status: Never Smoker Chew tobacco use (# tins/day): No Frequency of alcohol use: None Drug Abuse: None Lives with: Spouse/Significant other Family History: Arthritis, CAD, CVA, DM, Hyperlipidemia, Hypertension Patient has suicidal ideation: No Patient has homicidal ideation: No - Past Medical History Cardiac Medical History: Reports: Hx Hypercholesterolemia, Hx Hypertension Neurological Medical History: Denies: Hx Seizures Renal/ Medical History: Denies: Hx Peritoneal Dialysis Musculoskeletal Medical History: Reports Hx Arthritis, Reports Hx Musculoskeletal Trauma Psychiatric Medical History: Reports: Hx Depression Past Surgical History: Reports: Hx Section - x 2, Hx Tubal Ligation - Immunizations Immunizations up to date: Yes Hx Diphtheria, Pertussis, Tetanus Vaccination: Yes Review of Systems - Review of Systems Notes: REVIEW OF SYSTEMS: CONSTITUTIONAL : Denies fever, chills, or sweats. Denies recent illness. Denies weight loss, recent hospitalizations. EENT: Denies visual changes, eye pain. Denies sore throat, oral lesions, difficulty swallowing. CARDIOVASCULAR: Denies chest pain. Denies palpitations. Denies lower extremity edema. RESPIRATORY: Denies cough. Denies shortness of breath, wheezing. GASTROINTESTINAL: Denies abdominal pain or distention. Denies nausea, vomiting, or diarrhea. Denies blood in vomitus, stools, or per rectum. Denies black, tarry stools. Denies constipation. GENITOURINARY: Denies difficulty urinating, painful urination, frequency, blood in urine, or vaginal discharge. MUSCULOSKELETAL: Denies back or neck pain or stiffness. Denies joint pain or swelling. SKIN: + Hives HEMATOLOGIC : Denies easy bruising or bleeding. LYMPHATIC: Denies swollen glands. NEUROLOGICAL: Denies confusion or altered mental status. Denies loss of consciousness. Denies dizziness or lightheadedness. Denies headache. Denies weakness or paralysis. Denies problems difficulty with ambulation, slurred speech. Denies sensory loss, numbness, or tingling. Denies seizures. PSYCHIATRIC: Denies anxiety or stress. Denies depression, suicidal ideation, or homicidal ideation. Denies visual or auditory hallucinations. Physical Exam - Vital signs Vitals: Temp Pulse Resp BP Pulse Ox 98.6 F 100 16 144/91 H 95 07/08/19 14:39 07/08/19 14:39 07/08/19 14:39 07/08/19 14:39 07/08/19 14:39 - Notes Notes: PHYSICAL EXAMINATION: GENERAL: Well-appearing, well-nourished and in no acute distress. HEAD: Atraumatic, normocephalic. EYES: Pupils equal round and reactive to light, extraocular movements intact, conjunctiva are normal. ENT: Nares patent, oropharynx clear without exudates. Moist mucous membranes. NECK: Normal range of motion, supple without lymphadenopathy LUNGS: Breath sounds clear to auscultation bilaterally and equal. No wheezes rales or rhonchi. No increased work of breathing, no stridor, no accessory muscle use. HEART: Regular rate and rhythm without murmurs ABDOMEN: Soft, nontender, nondistended abdomen. No guarding, no rebound. No masses appreciated. Female : deferred Musculoskeletal: Normal range of motion, no pitting or edema. No cyanosis. NEUROLOGICAL: Cranial nerves grossly intact. Normal speech, normal gait. Normal sensory, motor exams PSYCH: Normal mood, normal affect. SKIN: Intermittent areas of erythema, raised. Course - Re-evaluation Re-evalutation: 07/08/19 18:45 Patient presents with symptoms consistent with an allergic reaction without anaphylaxis. Only cutaneous involvement with multiple areas of hives. Vitals otherwise within normal limits at time of arrival. No respiratory, GI, cardiovascular, or oral pharyngeal symptoms. Patient to receive additional Benadryl, prednisone, Pepcid. Will recommend ongoing antihistamine therapy as an outpatient. At this time will discharge with return precautions and follow-up recommendations. Verbal discharge instructions given a the bedside and op portunity for questions given. Medication warnings reviewed. Patient is in agreement with this plan and has verbalized understanding of return precautions and the need for primary care follow-up in the next 24-72 hours. Patient was evaluated and treated as appropriate for the patient's presenting symptoms and complaint, with consideration of any critical or life threatening conditions that may be associated with their obtained history and exam as noted above. All results were discussed with patient and significant other at the bedside. Patient provided the opportunity to ask questions, and express concerns. Patient was educated on treatments based on their presumed diagnosis as noted above. At this time we will discharge the patient with return precautions and follow-up recommendations. Verbal discharge instructions given a the bedside. Medication warnings reviewed. Patient is in agreement with this plan and has verbalized understanding of return precautions. After careful consideration I feel that that patient can be safely discharged from the emergency department, they were advised to followup with a primary care physician in 2-3 days. Dictation on this chart was performed using voice recognition software and may result in unintended grammatical, spelling, syntax or errors. - Vital Signs Vital signs: Temp Pulse Resp BP Pulse Ox 99.0 F 87 16 128/82 H 97 07/08/19 18:30 07/08/19 18:30 07/08/19 14:39 07/08/19 18:30 07/08/19 18:30 Discharge - Discharge Clinical Impression: Allergic reaction caused by a drug Qualifiers: Encounter type: initial encounter Qualified Code(s): T78.40XA - Allergy, unspecified, initial encounter Condition: Good Disposition: HOME, SELF-CARE Instructions: Acute Allergic Reaction to Drugs ([facility]) Additional Instructions: please discontinue your morphine immediately. Please take the medications you were prescribed. You can add 50 mg of Benadryl every 8 hours as needed for hives or itching. Please return to the emergency department immediately if you experience difficulty swallowing, shortness of breath, persistent hives or any other symptoms concerning to you. Follow up with your [id number] hours for further care or return to the ED IMMEDIATELY if symptoms worsen or you have any concerns. If you cannot afford to follow up with your primary care physician a list of low cost clinics have been provided at the end of your discharge papers as well. Most prescribed medications have multiple side effects. The safest thing to do is when filling your prescription speak to your pharmacist regarding possible interactions with your normal home medications and over the counter medications such as Ibuprofen, Tylenol, Benadryl. If you experience any symptoms that cause you discomfort or concern you should discontinue the medication immediately and return to the emergency room or call your primary care physician. Prescriptions: Prednisone [Deltasone 20 mg Tablet] 40 mg PO DAILY 3 Days #6 tablet Famotidine [Pepcid 40 mg Tablet] 40 mg PO DAILY 10 Days #10 tablet Referrals: MODESTO ARCHULETA MD [Primary Care Provider] - Follow up as needed
[2019-07-08 18:33] VITALS: BP 128/82
== END 2019-07-08 18:33 | disposition home or self-care (01) ==
LOC: ER 14:34
DX: L50.9 Urticaria, unspecified (principal); T78.40XA Allergy, unspecified, initial encounter; X58.XXXA Exposure to other specified factors, initial encounter; G89.29 Other chronic pain; I10 Essential (primary) hypertension; E78.5 Hyperlipidemia, unspecified; Z88.6 Allergy status to analgesic agent; Z98.51 Tubal ligation status
CPT/HCPCS: 99283; J7512

== ENCOUNTER 2019-09-29 07:10 | Emergency (ER) | payer SELFPAY ==
[2019-09-29] MEDS ORDERED: KETOROLAC TROMETHAMINE 60 MG/2 ML SDV IM ONE (09:22)
--- NOTE | 2019-09-29 09:31 | ER Document Report ---
ED Extremity Problem, Upper - General Chief Complaint: Arm Pain Stated Complaint: BACK PAIN, RIGHT ARM PAIN Time Seen by Provider: 09/29/19 08:55 Primary Care Provider: MODESTO ARCHULETA MD [Primary Care Provider] - Follow up as needed Notes: 44-year-old female recently diagnosed with sarcoid presents for right shoulder pain that is been ongoing for 3 weeks. Patient denies any specific injury. Patient states it radiates up into her neck. States worse with movement. Patient denies any chest pain, shortness of breath, nausea/vomiting, abdominal pain. TRAVEL OUTSIDE OF THE [place] IN LAST 30 DAYS: No - Related Data Allergies/Adverse Reactions: oxycodone [From Percocet] Allergy (Verified 09/29/19 08:01) Hives Home Medications: Amlodipine. HCTZ. Vitamin C Past Medical History - Social History Smoking Status: Never Smoker Chew tobacco use (# tins/day): No Frequency of alcohol use: None Drug Abuse: None Family History: Arthritis, CAD, CVA, DM, Hyperlipidemia, Hypertension Patient has suicidal ideation: No Patient has homicidal ideation: No - Past Medical History Cardiac Medical History: Reports: Hx Hypercholesterolemia, Hx Hypertension Neurological Medical History: Denies: Hx Seizures Renal/ Medical History: Denies: Hx Peritoneal Dialysis Musculoskeletal Medical History: Reports Hx Arthritis, Reports Hx Musculoskeletal Trauma Psychiatric Medical History: Reports: Hx Depression Past Surgical History: Reports: Hx Section - x 2, Hx Tubal Ligation - Immunizations Immunizations up to date: Yes Hx Diphtheria, Pertussis, Tetanus Vaccination: Yes Review of Systems - Review of Systems Notes: Constitutional: Negative for fever. HENT: Negative for sore throat. Eyes: Negative for visual changes. Cardiovascular: Negative for chest pain. Respiratory: Negative for shortness of breath. Gastrointestinal: Negative for abdominal pain, vomiting or diarrhea. Genitourinary: Negative for dysuria. Musculoskeletal: Positive for right shoulder pain. Negative for back pain. Skin: Negative for rash. Neurological: Negative for headaches, weakness or numbness. 10 point ROS negative except as marked above and in HPI. Physical Exam - Vital signs Vitals: Pulse Resp BP Pulse Ox 98 18 141/89 H 94 09/29/19 07:23 09/29/19 07:23 09/29/19 07:23 09/29/19 07:23 - Notes Notes: GENERAL: Well-appearing, well-nourished and in no acute distress. HEAD: Atraumatic, normocephalic. EYES: Extraocular movements intact, sclera anicteric, conjunctiva are normal. NECK: Normal range of motion, supple without lymphadenopathy or JVD. LUNGS: Breath sounds clear to auscultation bilaterally and equal. No wheezes rales or rhonchi. HEART: Regular rate and rhythm without murmurs, rubs or gallops. EXTREMITIES: No pitting or edema. No clubbing or cyanosis. RIGHT SHOULDER: Tenderness to anterior and posterior shoulder, limited ROM due to pain BACK: No spinal tenderness. Tenderness/muscle spasm noted to right upper trapezius NEUROLOGICAL: Cranial nerves II through XII grossly intact. Normal speech, normal gait. PSYCH: Normal mood, normal affect. SKIN: Warm, Dry, normal turgor, no rashes or lesions noted. Course - Re-evaluation Re-evalutation: 09/29/19 Right shoulder pain worse with movement, no injury. Nontoxic, well- appearing. Patient has tenderness to anterior and posterior shoulder. Range of motion limited due to pain. EKG shows no ST elevation and is unchanged from previous. Patient denies any chest pain, shortness of breath. X-ray of right shoulder ordered along with Toradol shot as pain appears to be muscular in nature. 09/29/19 11:20 X-ray of shoulder shows degenerative changes without fracture. Pain improved after toradol. Pt to be prescribed Flexeril with sedation warning. pt instructed to use heat to area and follow up with PCP. Discussed all results with pt and given x-ray report to pt. Return precautions given. Pt voices understanding and agrees with plan of care. - Vital Signs Vital signs: Temp Pulse Resp BP Pulse Ox 98.7 F 79 17 135/86 H 94 09/29/19 11:15 09/29/19 11:15 09/29/19 11:15 09/29/19 11:15 09/29/19 11:15 Discharge - Discharge Clinical Impression: Muscle spasm Right shoulder pain Qualifiers: Chronicity: acute Qualified Code(s): M25.511 - Pain in right shoulder Condition: Stable Disposition: HOME, SELF-CARE Instructions: Muscle Strain ([facility]), Warm Packs ([facility]) Additional Instructions: Please take Flexeril as prescribed. Do not drink or drive while taking muscle relaxer as it may make you drowsy. Please use heat as discussed. Please follow-up with your primary care doctor in 3 to 5 days. Return to ER for any worsening symptoms, including worsening pain, inability to move the shoulder, chest pain, shortness of breath, fever, or any other symptoms that are concerning to you. Prescriptions: Cyclobenzaprine HCl [Flexeril 10 mg Tablet] 10 mg PO QHS PRN #15 tablet PRN Reason: Referrals: MODESTO ARCHULETA MD [Primary Care Provider] - Follow up in 3-5 days
--- NOTE | 2019-09-29 09:50 | RADIOLOGY REPORT (SQ) ---
EXAM DESCRIPTION: SHOULDER RIGHT 2 OR MORE VIEWS COMPLETED DATE/TIME: 09/29/2019 9:37 am REASON FOR STUDY: right shoulder pain x 3 weeks COMPARISON: 06/14/2012. CT chest 06/29/2019. NUMBER OF VIEWS: Three views right shoulder. LIMITATIONS: None. FINDINGS: No fracture or bone lesion. Mild degenerative spurring in the glenohumeral joint. Extens monika pulmonary opacities, known nodules. OTHER: No other significant finding. IMPRESSION: 1. No acute or suspicious bone findings related to the right shoulder. Degenerative changes. 2. Known extensive pulmonary nodules in the right lung. TECHNICAL DOCUMENTATION: JOB ID: [id number] Reading location - IP/workstation name: [email or web address] [facility]
[2019-09-29 11:18] VITALS: BP 135/86
--- NOTE | 2019-09-30 20:48 | EKG REPORT ---
SEVERITY:- NORMAL ECG - SINUS RHYTHM : Confirmed by: Vincent Murillo 30-Sep-2019 20:47:09
== END 2019-09-29 12:03 | disposition home or self-care (01) ==
LOC: ER 07:10
DX: M25.511 Pain in right shoulder (principal); M62.838 Other muscle spasm; M54.2 Cervicalgia; I10 Essential (primary) hypertension
CPT/HCPCS: 93005; 99283; 96372; 73030; 93010; J1885

== ENCOUNTER 2019-10-30 07:21 | Emergency (ER) | payer SELFPAY ==
[2019-10-30] MEDS ORDERED: ACETAMINOPHEN 325 MG TABLET PO ONE (09:18)
[2019-10-30] MEDS ORDERED: CYCLOBENZAPRINE HCL 10 MG TABLET PO ONE (09:18)
--- NOTE | 2019-10-30 09:19 | RADIOLOGY REPORT (SQ) ---
EXAM DESCRIPTION: CHEST 2 VIEWS COMPLETED DATE/TIME: 10/30/2019 9:02 am REASON FOR STUDY: cough, back pain COMPARISON: 06/29/2019 EXAM PARAMETERS: NUMBER OF VIEWS: two views TECHNIQUE: Digital Frontal and Lateral radiographic views of the chest acquired. RADIATION DOSE: NA LIMITATIONS: none FINDINGS: LUNGS AND PLEURA: Multiple innumerable bilateral pulmonary nodules are again identified. As can best be determined, no acute pulmonary findings. No pneumothorax or pleural effusion. MEDIASTINUM AND HILAR STRUCTURES: Stable appearance. HEART AND VASCULAR STRUCTURES: Heart normal size. No evidence for failure. BONES: No acute findings. HARDWARE: None in the chest. OTHER: No other significant finding. IMPRESSION: 1. No significant interval changes since the prior examination dated 06/29/2019. Multi ple, innumerable bilateral pulmonary nodules. As can best be determined, no acute findings. TECHNICAL DOCUMENTATION: JOB ID: [id number] 2010 [employer]- All Rights Reserved Reading location - IP/workstation name: [email or web address]
--- NOTE | 2019-10-30 09:25 | ER Document Report ---
ED General - General Chief Complaint: Cough Stated Complaint: BACK PAIN Time Seen by Provider: 10/30/19 08:23 Primary Care Provider: MODESTO ARCHULETA MD [Primary Care Provider] - Follow up as needed TRAVEL OUTSIDE OF THE [place] IN LAST 30 DAYS: No - HPI Notes: 44-year-old female to the emergency department with complaints of productive cough and back pain for the past 5 days. She denies any hannah fevers but admits she has been hot and cold. She states that she has been coughing up green sputum and sometimes it is blood drink. She states that she is not had hannah mopped assist. She denies shortness of breath. She states every time she coughs she has a burning sensation in her chest. She states that she has been taking [id number] TheraFlu without any relief. She states that she has sarcoidosis. She does not smoke. She has not recently been traveling. She does not have a history of malignancy. She does not have any leg swelling. She has not recently had surgery. She is never had a DVT in her leg. - Related Data Allergies/Adverse Reactions: oxycodone [From Percocet] Allergy (Verified 10/30/19 07:43) Hives Home Medications: htn. scardosis. depression. arthritis Past Medical History - General Information source: Patient - Social History Smoking Status: Never Smoker Chew tobacco use (# tins/day): No Frequency of alcohol use: None Drug Abuse: None Family History: Arthritis, CAD, CVA, DM, Hyperlipidemia, Hypertension Patient has suicidal ideation: No Patient has homicidal ideation: No - Past Medical History Cardiac Medical History: Reports: Hx Hypercholesterolemia, Hx Hypertension Neurological Medical History: Denies: Hx Seizures Renal/ Medical History: Denies: Hx Peritoneal Dialysis Musculoskeletal Medical History: Reports Hx Arthritis, Reports Hx Musculoskeletal Trauma Psychiatric Medical History: Reports: Hx Depression Past Surgical History: Reports: Hx Section - x 2, Hx Tubal LigationComment Only: Hx Orthopedic Surgery - carpel tunnel - Immunizations Immunizations up to date: Yes Hx Diphtheria, Pertussis, Tetanus Vaccination: Yes Review of Systems - Review of Systems Constitutional: See HPI, Chills EENT: denies: Ear pain, Throat pain Cardiovascular: See HPI - Chest pain with cough, Chest pain. denies: Palpitations, Heart racing, Orthopnea, Syncope, Dizziness, Lightheaded Respiratory: See HPI, Cough, Hurts to breathe. denies: Short of breath Gastrointestinal: denies: Abdominal pain, Diarrhea, Nausea, Vomiting Genitourinary: No symptoms reported Female Genitourinary: No symptoms reported Musculoskeletal: See HPI, Back pain Skin: No symptoms reported Hematologic/Lymphatic: No symptoms reported Neurological/Psychological: No symptoms reported -: Yes All other systems reviewed and negative Physical Exam - Vital signs Vitals: Temp Pulse Resp BP Pulse Ox 98.9 F 95 16 120/75 97 10/30/19 07:42 10/30/19 07:42 10/30/19 07:42 10/30/19 07:42 10/30/19 07:42 Interpretation: Normal - General General appearance: Appears well, Alert In distress: None - HEENT Head: Normocephalic, Atraumatic Eyes: Normal Pupils: PERRL Ears: Normal External canal: Normal Tympanic membrane: Normal. No: Perforation, Purulent effusion Sinus: Normal Nasal: Normal. No: Purulent discharge, Septal hematoma, Clear rhinorrhea Mouth/Lips: Normal. No: Angioedema Mucous membranes: Normal Pharynx: Normal. No: Erythema, Exudate, Peritonsillar abscess, Post nasal drainage, Retropharyngeal abscess, Tonsillar hypertrophy, Uvular edema, Potential airway comprom. Neck: Normal, Supple. No: Lymphadenopathy, Meningismus - Respiratory Respiratory status: No respiratory distress Chest status: Nontender. No: Accessory muscle use, Prolonged expirations Breath sounds: Normal, Productive cough. No: Rales, Rhonchi, Wheezing Chest palpation: Normal - Cardiovascular Rhythm: Regular Heart sounds: Normal auscultation Murmur: No - Abdominal Inspection: Normal Distension: No distension Bowel sounds: Normal Tenderness: Nontender Organomegaly: No organomegaly - Back Back: Normal, Tender - There is tenderness to palpation over the right upper back musculature along the latissimus dorsi and paraspinals. There is no midline tenderness to palpation. There is no deformity or step-off.. No: Deformity/step-off, CVA tenderness, Vertebra tenderness - Extremities General upper extremity: Normal inspection, Nontender, Normal color, Normal ROM, Normal temperature General lower extremity: Normal inspection, Nontender, Normal color, Normal ROM, Normal temperature, Normal weight bearing. 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 Chest x-ray most consistent with sarcoidosis. However given her sarcoidosis and her length of illness will cover with doxycycline. Also sent home with steroids, albuterol, cough syrup. We will have her follow-up with her primary care physician by Tuesday. She is to return immediately if any worsening symptoms such as worsening shortness of breath, chest pain, passing out, any other concerning symptoms. She agrees with the plan. Low Wells score risk for PE, Vital signs are very reassuring. - Vital Signs Vital signs: Temp Pulse Resp BP Pulse Ox 98.9 F 95 16 120/75 97 10/30/19 07:42 10/30/19 07:42 10/30/19 07:42 10/30/19 07:42 10/30/19 07:42 - Diagnostic Test Radiology reviewed: Image reviewed, Reports reviewed Discharge - Discharge Clinical Impression: Productive cough, Sarcoidosis URI (upper respiratory infection) Qualifiers: URI type: unspecified URI Qualified Code(s): J06.9 - Acute upper respiratory infection, unspecified Condition: Stable Disposition: HOME, SELF-CARE Instructions: Upper Respiratory Illness ([facility]) Additional Instructions: Push fluids. Complete all antibiotics. Complete steroids. Return if worsening symptoms. See primary care physician on Tuesday without fail. Take 1000 mg of Tylenol every 6 hours for pain. Prescriptions: Albuterol Sulfate [Albuterol Sulfate Hfa] 2 puff IH Q4H PRN #1 [id number] PRN Reason: Doxycycline Monohydrate 100 mg PO BID #20 tablet Hydrocodone/Chlorphen P-Stirex [Hydrocodone-Chlorphen ER Susp] 5 ml PO Q12 #60 ml Methylprednisolone [Medrol Dosepack (4 mg/Tab) 21 Tab/Dosepak] 4 mg PO ASDIR PRN #21 tab.ds.pk PRN Reason: Forms: Return to Work Referrals: MODESTO ARCHULETA MD [Primary Care Provider] - 11/02/19
[2019-10-30] MEDS ORDERED: ALBUTEROL SULFATE 0.083% NEB 2.5 MG/3 ML AMPUL NEB ONE (09:39)
[2019-10-30 10:08] VITALS: BP 134/82
== END 2019-10-30 10:06 | disposition home or self-care (01) ==
LOC: ER 07:21
DX: J06.9 Acute upper respiratory infection, unspecified (principal); D86.9 Sarcoidosis, unspecified; R05 Cough; R07.1 Chest pain on breathing; M54.9 Dorsalgia, unspecified; I10 Essential (primary) hypertension; F32.9 Major depressive disorder, single episode, unspecified; M19.90 Unspecified osteoarthritis, unspecified site; Z79.899 Other long term (current) drug therapy
CPT/HCPCS: 71046

== ENCOUNTER → 2019-11-15 | Outpatient (CLI) | payer OTHER ==
[2019-11-15 10:33] LABS: ABSOLUTE BASOPHILS # (AUTO) 0.1 10^3/uL (0.0-0.2); ABSOLUTE EOSINOPHILS # (AUTO) 0.2 10^3/uL (0.0-0.6); ABSOLUTE LYMPHOCYTES (AUTO) 1.8 10^3/uL (0.5-4.7); ABSOLUTE MONOCYTES (AUTO) 0.8 10^3/uL (0.1-1.4); ABSOLUTE NEUT (AUTO) 3.2 10^3/uL (1.7-8.2); EOSINOPHILS % (AUTO) 2.5 % (0-6); HEMATOCRIT 36.8 % (36.0-47.0); HEMOGLOBIN 12.7 g/dL (12.0-15.5); LYMPHOCYTES % (AUTO) 30.4 % (13-45); MEAN CORPUSCULAR HEMOGLOBIN 28.1 pg (27.0-33.4); MEAN CORPUSCULAR HGB CONC 34.6 g/dL (32.0-36.0); MEAN CORPUSCULAR VOLUME 81 fl (80-97); MONOCYTES % (AUTO) 12.5 % (3-13); PLATELET COUNT 466 10^3/uL (150-450); RED BLOOD COUNT 4.53 10^6/uL (3.72-5.28); RED CELL DISTRIBUTION WIDTH 15.3 % (11.5-14.0); SEGMENTED NEUTROPHILS % (AUTO) 53.6 % (42-78); TOTAL CELLS COUNTED % (AUTO) 100 %
[2019-11-15 11:06] LABS: ALKALINE PHOSPHATASE 232 U/L (38-126); ANION GAP 10 (5-19); ASPARTATE AMINO TRANSFERASE 38 U/L (14-36); BILIRUBIN,DIRECT 0.1 mg/dL (0.0-0.4); BILIRUBIN,TOTAL 0.7 mg/dL (0.2-1.3); BLOOD UREA NITROGEN 13 mg/dL (7-20); CALCIUM 9.6 mg/dL (8.4-10.2); CARBON DIOXIDE 28 mmol/L (22-30); CHLORIDE 103 mmol/L (98-107); CHOLESTEROL 211.57 mg/dL (0-200); GLUCOSE 87 mg/dL (75-110); POTASSIUM 3.8 mmol/L (3.6-5.0); TOTAL PROTEIN 9.4 g/dL (6.3-8.2); TRIGLYCERIDES 72 mg/dL (<150)
[2019-11-15 11:17] LABS: DIRECT LDL 155 mg/dL (<100)
== END ==
LOC: CCC 09:37
DX: I10 Essential (primary) hypertension (principal); D86.9 Sarcoidosis, unspecified
CPT/HCPCS: 36415; 80053; 80061; 82164; 83036; 84443; 85025

== ENCOUNTER → 2019-11-21 | Outpatient (CLI) | payer OTHER ==
[~2019-11-21] MED LIST: ALBUTEROL SULFATE 0.083% NEB 2.5 MG/3 ML AMPUL NEB ONE
--- NOTE | 2019-11-21 14:42 | Pulmonary Function Test ---
Pulmonary Function Test Date of Procedure:: 11/21/19 INDICATION:: Sarcoidosis dyspnea Referring Provider: Dr. Peck Proced Tech: Samanta Greenfield, SHOP COORDINATOR - Report Spirometry: Spirometry: pre-FVC: 2.01 L 75% post-FVC: 1.95 L 73% pre-FEV:1 1.57 L 69% post-FEV1: 1.59 L 69% pre-FEV1/FVC %: 78 post-FEV1/FVC%: 81 predicted: 86 [id number]%: 2.53 L 95% [id number]%: 2.17 L 81% Diffusion Capactity: DLCO: 12.5 51% DLCO/VA: 5.01 118% Impression: No obstructive ventilatory defect. Moderate decrease in diffusion capacity. Due to the decreased flow at the FVC and showed restrictive defect exists. Restrictive defect cannot be diagnosed on the basis of spirometry alone.
== END ==
LOC: RT 08:24
DX: D86.9 Sarcoidosis, unspecified (principal); R06.00 Dyspnea, unspecified
CPT/HCPCS: 94060; 94729

== ENCOUNTER → 2020-06-30 | Outpatient (CLI) | payer OTHER ==
--- NOTE | 2020-06-30 12:43 | RADIOLOGY REPORT (SQ) ---
EXAM DESCRIPTION: CHEST PA/LATERAL IMAGES COMPLETED DATE/TIME: 06/30/2020 12:12 pm REASON FOR STUDY: SARCOIDOSIS OF LUNG COMPARISON: 10/30/2019 EXAM PARAMETERS: NUMBER OF VIEWS: two views TECHNIQUE: Digital Frontal and Lateral radiographic views of the chest acquired. RADIATION DOSE: NA LIMITATIONS: none FINDINGS: LUNGS AND PLEURA: There are marked interstitial changes with no superimposed infiltrate. No pleural effusion. MEDIASTINUM AND HILAR STRUCTURES: No masses or contour abnormalities. HEART AND VASCULAR STRUCTURES: Heart normal size. No evidence for failure. BONES: No acute findings. HARDWARE: None in the chest. OTHER: No other significant finding. IMPRESSION: No interval change. Findings consistent with the stated history of sarcoidosis. TECHNICAL DOCUMENTATION: JOB ID: [id number] 2010 [employer]- All Rights Reserved Reading location - IP/workstation name: [email or web address]
[2020-06-30 13:26] LABS: ABSOLUTE BASOPHILS # (AUTO) 0.1 10^3/uL (0.0-0.2); ABSOLUTE EOSINOPHILS # (AUTO) 0.2 10^3/uL (0.0-0.6); ABSOLUTE LYMPHOCYTES (AUTO) 3.5 10^3/uL (0.5-4.7); ABSOLUTE NEUT (AUTO) 3.4 10^3/uL (1.7-8.2); BASOPHILS % (AUTO) 0.7 % (0-2); EOSINOPHILS % (AUTO) 1.9 % (0-6); HEMATOCRIT 35.3 % (36.0-47.0); HEMOGLOBIN 11.7 g/dL (12.0-15.5); LYMPHOCYTES % (AUTO) 42.7 % (13-45); MEAN CORPUSCULAR HEMOGLOBIN 27.1 pg (27.0-33.4); MEAN CORPUSCULAR HGB CONC 33.3 g/dL (32.0-36.0); MEAN CORPUSCULAR VOLUME 82 fl (80-97); MONOCYTES % (AUTO) 12.9 % (3-13); RED BLOOD COUNT 4.33 10^6/uL (3.72-5.28); RED CELL DISTRIBUTION WIDTH 15.4 % (11.5-14.0); SEGMENTED NEUTROPHILS % (AUTO) 41.8 % (42-78); TOTAL CELLS COUNTED % (AUTO) 100 %; WHITE BLOOD COUNT 8.1 10^3/uL (4.0-10.5)
[2020-06-30 13:31] LABS: APPEARANCE,URINE CLEAR; BILIRUBIN,URINE NEGATIVE (NEGATIVE); COLOR,URINE YELLOW; GLUCOSE, URINE NEGATIVE (NEGATIVE); KETONES,URINE NEGATIVE (NEGATIVE); LEUKOCYTE ESTERASE,URINE NEGATIVE (NEGATIVE); NITRITE,URINE NEGATIVE (NEGATIVE); PROTEIN,URINE NEGATIVE (NEGATIVE); URINE SPECIFIC GRAVITY 1.024
[2020-06-30 13:58] LABS: ALKALINE PHOSPHATASE 174 U/L (38-126); ANION GAP 11 (5-19); ASPARTATE AMINO TRANSFERASE 27 U/L (14-36); BILIRUBIN,DIRECT 0.3 mg/dL (0.0-0.4); BILIRUBIN,TOTAL 0.7 mg/dL (0.2-1.3); BLOOD UREA NITROGEN 12 mg/dL (7-20); C-REACTIVE PROTEIN 18.7 mg/L (<10.0); CALCIUM 9.8 mg/dL (8.4-10.2); CARBON DIOXIDE 26 mmol/L (22-30); CHLORIDE 103 mmol/L (98-107); GLUCOSE 84 mg/dL (75-110); POTASSIUM 5.1 mmol/L (3.6-5.0)
[2020-06-30 14:09] LABS: PLATELET COUNT 396 10^3/uL (150-450)
[2020-07-01 06:37] LABS: HEPATITIS B CORE AB TOT Negative (Negative); HEPATITIS C VIRUS AB 0.2 s/co ratio (0.0-0.9)
[2020-07-01 07:04] LABS: HEPATITIS B SURFACE AB QUAL Non Reactive (.); HEPATITS B SURFACE ANTIGEN Negative (Negative)
== END ==
LOC: CCC 11:11
PROVIDERS: ATTEND Internal Medicine
DX: D86.0 Sarcoidosis of lung (principal); N30.90 Cystitis, unspecified without hematuria; R73.03 Prediabetes
CPT/HCPCS: 36415; 71046; 80048; 80076; 81001; 83036; 85025; 86140; 86704; 86705; 86706; 86803; 86804; 87340